=== PATIENT | female | born 1945 | race Caucasian/White ===

== ENCOUNTER 2017-09-07 12:22 | Inpatient (IN) | payer MEDICARE ==
[2017-09-07] MEDS ORDERED: HumaLOG 300 UNITS/3 ML VIAL SC PRN ×2 (13:27)
[2017-09-07] MEDS ORDERED: Dextrose 5% in Water 1,000 ML IV PRN (13:27)
[2017-09-07] MEDS ORDERED: Dextrose 50% Abboject 50 ML SYRINGE SLOW IVP PRN (13:27)
[2017-09-07] MEDS ORDERED: Sodium Chloride 0.9% 50 ML ONE (16:06)
[2017-09-07] MEDS ORDERED: Non-Formulary Item 1 EACH (Metformin Hcl [Metformin Hcl Er] 1,000 MG) PO SCH (17:00)
[2017-09-07] MEDS: metFORMIN XR 500 MG TAB PO SCH (18:22)
[2017-09-07] MEDS: Gabapentin 300 MG CAP PO SCH ×2 (18:23→21:28)
--- NOTE | 2017-09-07 18:50 | HP ---
DATE OF ADMISSION: 09/07/2017 CHIEF COMPLAINT: Significant deconditioning for physical therapy. BRIEF HISTORY: This is a pleasant overweight 72-year-old female, who was admitted to [facility] on 08/25/2017 with knee pain. 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 She was on IV antibiotics for 6 weeks. She has had difficulty getting around at home and presented to the emergency room. She w as noticed to have a right heel decubitus with tendon exposure as well as left heel deep tissue inju ry and was admitted to the hospital for evaluation. She was noticed to have significant peripheral vascular disease and underwent a right fem-pop bypass. She also was noticed to have a renal stone, which required lithotripsy, ureteral stent placement by Urology. She also started growing yeast and was started on Diflucan. She was switched over to oral Keflex after finishing 6 weeks of antibioti cs. Her wound VAC was removed from the site of her right fem-pop bypass. She has continued wound t herapy for her right heel and she has been transferred here for therapy and wound care. She denies any concerns. She denies any fever or chills. She denies any chest pain or shortness of breath. PAST MEDICAL HISTORY: 1. Diabetes mellitus type 2. 2. Hypertension. 3. Dyslipidemia. 4. Obstructive sleep apnea. 5. Morbid obesity. 6. Coronary artery disease. 7. Degenerative joint disease. 8. Recent septic arthritis. 9. Peripheral vascular disease. 10. Bilateral heel decubitus, right heel worse than left. PAST SURGICAL HISTORY: 1. Vulvar debulking for vulvar cancer. 2. Shoulder surgery. 3. Bilateral total knee replacement. 4. Right total knee revision in 06/17/2017. 5. Coronary artery bypass grafting. 6. Pacemaker placement. 7. Appendectomy. 8. Hysterectomy . ALLERGIES: PLAVIX, COCONUT OIL, CODEINE. TORADOL, PENICILLIN, SULFA, TIZANIDINE. FAMILY HISTORY: Noncontributory to current admission. PSYCHOSOCIAL HISTORY: Denies any tobacco, alcohol or IV drug abuse. She states she has not been ve ry independent and has had significant difficulty with her ADLs. MEDICATIONS: She has been transferred here on the following medications: 1. Tye 5/325 mg one tab q.6 hours p.r.n. for pain 4-7 and 2 tabs q. 6 hours h. p.r.n. for pain 8- 10. 2. Ecotrin 81 daily. 3. Tenormin 75 mg daily. 4. Lipitor 20 mg daily. 5. Vitamin D3 1000 international units daily. 6. Lexapro 10 mg daily. 7. Levoxyl 125 mcg daily. 8. Zestril 40 mg daily. 9. Glucophage XR 1000 mg b.i.d. 10. Myrbetriq 50 mg. In the discharge note, I have read that she is supposed to be on Keflex, but I do not see it in the discharge medication list. REVIEW OF SYSTEMS: Cardiovascular System: Denies any chest pain, shortness of breath, palpitations , paroxysmal nocturnal dyspnea, orthopnea, pedal edema. Respiratory System: Denies any chronic cou gh, expectoration or pleuritic type chest pain. Gastrointestinal System: Denies any nausea, vomiti ng, diarrhea, constipation, hematemesis, melena or hematochezia. Genitourinary: Denies any frequen cy, urgency, dysuria or hematuria. Central Nervous System: Generalized weakness. HEENT: No diffi culty with speech, vision, hearing or swallowing. PHYSICAL EXAMINATION: GENERAL: Pleasant 72-year-old overweight female resting comfortably, in no acute distress . She responds appropriately to questions. She is alert, awake, and oriented x3. VITAL SIGNS: She is afebrile, heart rate is 60, respirations 20, oxygen saturation 97%, blood press ure was 185/77. HEENT: Normocephalic, atraumatic. Pupils equal and reactive to light and accommodation. NECK: No JVD, thyromegaly, cervical adenopathy, throat exudates or carotid bruits. CARDIOVASCULAR SYSTEM: S1, S2+. Rate and rhythm regular. RESPIRATORY SYSTEM: Normal vesicular breath sounds heard in all lung lennon with decreased air entr y at the bases. ABDOMEN: Soft, obese, nontender, bowel sounds heard in all quadrants. EXTREMITIES: Without cyanosis or clubbing. Trace edema, right leg. Peripheral pulses are palpable , right bilateral heel with dressing. CENTRAL NERVOUS SYSTEM: Generalized weakness, otherwise nonfocal. LABORATORY VALUES: Pending from today. IMPRESSION: 1. Severe peripheral vascular disease, status post right femoral-popliteal bypass. 2. Diabetes mellitus type 2. 3. Hypertension. 4. Dyslipidemia. 5. Hypothyroidism. 6. Coronary artery disease. 7. Morbid obesity. 8. Obstructive sleep apnea. 9. Multiple renal stones requiring left ureteroscopy, stent placement and lithotripsy and basket ex traction. PLAN: 1. Continue wound care per written instructions from [facility]. 2. Restart Keflex 250 mg t.i.d. 3. 1800 calorie Heart healthy ADA diet. 4. DVT prophylaxis with Lovenox. 5. Decubitus precautions. 6. Stress ulcer prophylaxis. 7. Physical therapy and occupational therapy. 8. Nutritional support with 1800 calorie heart healthy diet. 9. Continue current medications 10. Routine laboratory values. 11. Discussed with patient in detail and all questions answered. 12. Finish Diflucan for ??? UTI for a total of 10 days. Total time spent on this admission 75 minutes.
[2017-09-07] MEDS ORDERED: Simvastatin 40 MG TAB PO SCH (21:00)
[2017-09-07] MEDS ORDERED: INSULIN GLARGINE HUM REC ANLOG 55 UNIT SC SCH (21:00)
[2017-09-07] MEDS: Atorvastatin Calcium 20 MG TAB PO SCH (21:28)
[2017-09-07] MEDS: Famotidine 20 MG TAB PO SCH (21:28)
[2017-09-07] MEDS: Enoxaparin Sodium 40 MG/0.4 ML SYRINGE SC SCH (21:28)
[2017-09-07] MEDS: Cephalexin 250 MG CAP PO SCH (21:28)
[2017-09-07] MEDS: Levemir Flexpen 100 UNITS/ML PEN SC SCH (21:29)
[2017-09-07] MEDS: HYDROcodone/Acetaminophen 10/325 mg Tablet PO PRN (22:38)
[2017-09-08 05:09] LABS: #Basophils 0.1 thou/uL (0.0-0.2); #Eosinphils 0.4 thou/uL (0.0-0.7); #Lymphocytes 2.2 thou/uL (1.20-3.40); #Monocytes 0.8 thou/uL (0.11-0.59); %Basophils 0.6 % (0.0-1.0); %Eosinophils 3.7 % (0.0-10.0); %Lymphocytes 19.1 % (21.0-51.0); %Monocytes 7.1 % (0.0-10.0); %Neutrophils 69.5 % (42.0-75.0); Hemoglobin 10.1 g/dL (12.0-16.0); Mean Corpuscular HGB CONC 30.9 g/dL (32.0-36.0); Mean Corpuscular Hemoglobin 27.8 pg (27.0-31.0); Mean Platelet Volume 7.6 fL (7.4-10.4); Platelet Count 262 thou/uL (130-400); RBC Distribution Width 13.5 % (11.5-14.5); Red Blood Cell (RBC) Count 3.62 mill/uL (4.20-5.40); White Blood Cell (WBC) Count 11.5 thou/uL (4.8-10.8)
[2017-09-08 05:26] LABS: Anion Gap 13 mmol/L (10-20); BUN (Urea Nitrogen) 18 mg/dL (9.8-20.1); Calc. Creatinine Clearance 106 mL/min (70-130); Calcium 9.5 mg/dL (7.8-10.44); Carbon Dioxide 25 mmol/L (23-31); Chloride 105 mmol/L (98-107); Estimated GFR-MDRD 75; Glucose 133 mg/dL (83-110); Potassium 3.8 mmol/L (3.5-5.1); Sodium 139 mmol/L (136-145)
[2017-09-08] MEDS ORDERED: Non-Formulary Item 1 EACH (Insulin Glargine,Hum.Rec.Anlog 35 UNIT) SQ SCH (09:00)
[2017-09-08] MEDS: Levemir Flexpen 100 UNITS/ML PEN SC SCH ×2 (09:00→20:46)
[2017-09-08] MEDS ORDERED: ATENOLOL 75 MG PO SCH (09:00)
[2017-09-08] MEDS: Levothyroxine Sodium 125 MCG TAB PO SCH (09:02)
[2017-09-08] MEDS: Atenolol 25 MG TAB PO SCH (09:02)
[2017-09-08] MEDS: Gabapentin 300 MG CAP PO SCH ×4 (09:02→20:45)
[2017-09-08] MEDS: Cephalexin 250 MG CAP PO SCH ×3 (09:03→20:45)
[2017-09-08] MEDS: Fluconazole 100 MG TAB PO SCH (09:03)
[2017-09-08] MEDS: Escitalopram Oxalate 10 mg Tablet PO SCH (09:04)
[2017-09-08] MEDS: Famotidine 20 MG TAB PO SCH ×2 (09:04→20:45)
[2017-09-08] MEDS: Lisinopril 20 MG TAB PO SCH (09:04)
[2017-09-08] MEDS: metFORMIN XR 500 MG TAB PO SCH ×2 (09:57→15:52)
[2017-09-08] MEDS: Aspirin 81 mg Enteric Coated Tablet PO SCH (09:58)
--- NOTE | 2017-09-08 10:50 | PRG ---
DATE OF SERVICE: 09/08/2017 SUBJECTIVE: The patient feels well, sitting up in the bed eating breakfast. Awaiting therapy. She states that she is ready to do therapy. She is having chronic difficulty with placing weight on he r right knee secondary to antibiotic spacers being placed for septic arthritis, but is now having ne w problem of weakness in her left good leg, limiting her therapy. She has denied any fever or chill s, nausea and vomiting, is having no pain in her heel and is having increased diabetic control since her infection has been improved. She has a previous history of coronary disease, peripheral vascul ar disease, status post coronary bypass graft and carotid endarterectomy. She was denying any chest pain, shortness of breath, localized numbness, weakness in arms or extremity. OBJECTIVE: Blood pressure 118/72, pulse 60, temperature 97, respirations 16, O2 96%, blood pressure 153/60. Lungs are clear. Cardiac examination shows regular rhythm. Abdomen is soft and nontender . Right knee is swollen and unable to extend greater than 160 degrees, but not red or hot. Right h eel is bandaged and being cared for by Wound Care. ASSESSMENT: Diabetes with poor control with subsequent complication of septic arthritis, right knee and heel decubitus on right heel. She has undergone right femoral popliteal bypass with good heali ng and good flow, who is now here for PT and OT. She had a new complication of some weakness in her left leg. She will be continued on therapy well while she is continued on oral Keflex for her nurse coordinator magdy right knee infection with spacers in place. Her diabetes appears to be much better controlled a nd will be continued to monitor on her decreased dose of Levemir and sliding scale. PLAN: 1. Continue PT, OT monitoring for weakness in the left leg and weightbearing on the right heel and right knee. 2. Continue oral Keflex. 3. Continue Diflucan for yeast urinary tract infection. 4. Continue to monitor for signs of angina or congestive heart failure.
[2017-09-08] MEDS: HYDROcodone/Acetaminophen 10/325 mg Tablet PO PRN ×2 (12:57→19:53)
[2017-09-08] MEDS: Atorvastatin Calcium 20 MG TAB PO SCH (20:45)
[2017-09-08] MEDS: Enoxaparin Sodium 40 MG/0.4 ML SYRINGE SC SCH (20:46)
[2017-09-09] MEDS: HYDROcodone/Acetaminophen 10/325 mg Tablet PO PRN ×3 (06:56→20:40)
[2017-09-09] MEDS: Atenolol 25 MG TAB PO SCH (08:24)
[2017-09-09] MEDS: metFORMIN XR 500 MG TAB PO SCH ×2 (08:24→17:28)
[2017-09-09] MEDS: Aspirin 81 mg Enteric Coated Tablet PO SCH (08:24)
[2017-09-09] MEDS: Escitalopram Oxalate 10 mg Tablet PO SCH (08:25)
[2017-09-09] MEDS: Cephalexin 250 MG CAP PO SCH ×3 (08:25→20:35)
[2017-09-09] MEDS: Gabapentin 300 MG CAP PO SCH ×4 (08:26→20:35)
[2017-09-09] MEDS: Fluconazole 100 MG TAB PO SCH (08:26)
[2017-09-09] MEDS: Famotidine 20 MG TAB PO SCH ×2 (08:26→20:35)
[2017-09-09] MEDS: Levemir Flexpen 100 UNITS/ML PEN SC SCH ×2 (08:27→20:38)
[2017-09-09] MEDS: Levothyroxine Sodium 125 MCG TAB PO SCH (08:27)
[2017-09-09] MEDS: Lisinopril 20 MG TAB PO SCH (08:28)
[2017-09-09] MEDS: Atorvastatin Calcium 20 MG TAB PO SCH (20:35)
[2017-09-09] MEDS: Enoxaparin Sodium 40 MG/0.4 ML SYRINGE SC SCH (20:38)
[2017-09-10] MEDS: metFORMIN XR 500 MG TAB PO SCH ×2 (08:28→17:12)
[2017-09-10] MEDS: Atenolol 25 MG TAB PO SCH (08:29)
[2017-09-10] MEDS: Cephalexin 250 MG CAP PO SCH ×3 (08:29→20:46)
[2017-09-10] MEDS: Aspirin 81 mg Enteric Coated Tablet PO SCH (08:29)
[2017-09-10] MEDS: Gabapentin 300 MG CAP PO SCH ×4 (08:30→20:46)
[2017-09-10] MEDS: Fluconazole 100 MG TAB PO SCH (08:30)
[2017-09-10] MEDS: Famotidine 20 MG TAB PO SCH ×2 (08:30→20:47)
[2017-09-10] MEDS: Escitalopram Oxalate 10 mg Tablet PO SCH (08:30)
[2017-09-10] MEDS: Levemir Flexpen 100 UNITS/ML PEN SC SCH ×2 (08:31→20:48)
[2017-09-10] MEDS: Levothyroxine Sodium 125 MCG TAB PO SCH (08:31)
[2017-09-10] MEDS: Lisinopril 20 MG TAB PO SCH (08:31)
--- NOTE | 2017-09-10 10:02 | PRG ---
DATE OF SERVICE: 09/09/[address] Caryl Gilbert SUBJECTIVE: The patient feels well with no foot pain and good strength. No nausea, vomiting, no ch est pain. OBJECTIVE: VITAL SIGNS: Blood pressure is 152/65, temperature 98, pulse 60, respirations 18, O2 sats 96%. LUNGS: Clear. CARDIAC: Examination shows regular rhythm. EXTREMITIES: Right foot is bandaged. ASSESSMENT: 1. Peripheral vascular disease, right foot with heel decubitus of the right heel, healing well with PT and OT. 2. Yeast urinary tract infection. 3. Recent renal stone with lithotripsy and stent placement by Dr. Mccrary. 4. Obstructive sleep apnea. 5. Coronary artery disease, asymptomatic. PLAN: 1. Continue oral Keflex. Continue wound care. 2. Arrange for transport with Dr. Mccrary on Monday or Monday next week for followup. 3. Continue Diflucan for yeast urinary tract infection. 4. Continue Accu-Cheks and titration to control of diabetes.
--- NOTE | 2017-09-10 11:22 | PRG ---
DATE OF SERVICE: 09/10/2017 SUBJECTIVE: Patient feels well, sitting up in the bed, eating breakfast. OBJECTIVE: Shows blood pressure 152/65, pulse 60, respirations 18, O2 sats 96%. Right heel is band aged. Lungs are clear. Cardiac examination shows regular rhythm. Accu-Cheks are stable at 95-116. ASSESSMENT: 1. Resolving right heel decubitus. 2. Stable peripheral vascular disease, status post right femoral popliteal bypass. 3. Type 2 diabetes previously uncontrolled, now controlled. 4. Hypertension, controlled to goal. 5. Multiple renal stones requiring lithotripsy with appointment next week with Dr. Mccrary. PLAN: 1. Continue wound care. 2. Continue Keflex. 3. Arrange for transportation, Dr. Mccrary. 4. Finish Diflucan. 5. Continue PT and OT. 6. Continue Accu-Cheks, controlled diabetes.
[2017-09-10] MEDS: HYDROcodone/Acetaminophen 10/325 mg Tablet PO PRN (17:14)
[2017-09-10] MEDS: Atorvastatin Calcium 20 MG TAB PO SCH (20:47)
[2017-09-10] MEDS: Enoxaparin Sodium 40 MG/0.4 ML SYRINGE SC SCH (20:48)
[2017-09-11] MEDS: Levemir Flexpen 100 UNITS/ML PEN SC SCH ×2 (08:27→21:04)
[2017-09-11] MEDS: Atenolol 25 MG TAB PO SCH (08:28)
[2017-09-11] MEDS: Cephalexin 250 MG CAP PO SCH ×3 (08:28→21:03)
[2017-09-11] MEDS: metFORMIN XR 500 MG TAB PO SCH ×2 (08:28→16:59)
[2017-09-11] MEDS: Lisinopril 20 MG TAB PO SCH (08:30)
[2017-09-11] MEDS: Aspirin 81 mg Enteric Coated Tablet PO SCH (08:30)
[2017-09-11] MEDS: Levothyroxine Sodium 125 MCG TAB PO SCH (08:31)
[2017-09-11] MEDS: Fluconazole 100 MG TAB PO SCH (08:31)
[2017-09-11] MEDS: Famotidine 20 MG TAB PO SCH ×2 (08:31→21:03)
[2017-09-11] MEDS: Gabapentin 300 MG CAP PO SCH ×4 (08:31→21:03)
[2017-09-11] MEDS: Escitalopram Oxalate 10 mg Tablet PO SCH (08:34)
[2017-09-11] MEDS: HYDROcodone/Acetaminophen 10/325 mg Tablet PO PRN ×3 (08:46→21:04)
--- NOTE | 2017-09-11 13:21 | PRG ---
DATE OF SERVICE: 09/11/2017 SUBJECTIVE: Ms. Hoyos is doing well. Denies any complaints, resting comfortably. She is due to se santos Mccrary on Monday. She is supposed to get a CT scan on that same day. She denies any concerns or questions. Discussed with nursing and no concerns. She has had rai in since the , then I have asked nursing to remove the rai. Her blood pressure was high this morning, but denies any chest pain, headache, vision problems. OBJECTIVE: VITAL SIGNS: She is afebrile, heart rate 62, respirations 18, blood pressure 196/80. CARDIOVASCULAR: S1, S2 plus. RESPIRATORY: Normal vesicular breath sounds. ABDOMEN: Soft, nontender, bowel sounds heard in all quadrants. EXTREMITIES: Without cyanosis or clubbing. Peripheral pulses are palpable. CENTRAL NERVOUS SYSTEM: Grossly nonfocal. I examined her right leg and minimal edema. Both the fe m-pop bypass incision as well as her right knee incision looks healthy, soft tissues a little tense, but no warmth or tenderness. IMPRESSION: 1. Right leg peripheral vascular disease status post femoral-popliteal bypass. 2. Nonhealing ulcer, right heel, stage 4. 3. Diabetes mellitus type 2. 4. Hypertension, not well controlled. 5. Obesity. 6. Peripheral neuropathy. 7. Resolving urinary tract infection. 8. Depression. 9. Dyslipidemia. 10. Renal calculi status post stent placement as well as lithotripsy. PLAN: 1. Add amlodipine 10 mg at night. 2. Okay to remove rai. 3. Continue current medications. 4. 1800-calorie heart healthy diet. 5. Wound care. 6. DVT and stress ulcer prophylaxis. 7. Decubitus precautions. 8. Routine laboratory values. 9. Discussed with patient in detail and all questions answered.
[2017-09-11] MEDS ORDERED: Amlodipine 10 MG TAB PO SCH ×2 (13:30→21:00)
[2017-09-11] MEDS: Enoxaparin Sodium 40 MG/0.4 ML SYRINGE SC SCH (21:03)
[2017-09-11] MEDS: Atorvastatin Calcium 20 MG TAB PO SCH (21:03)
[2017-09-12 05:12] LABS: #Basophils 0.1 thou/uL (0.0-0.2); #Eosinphils 0.6 thou/uL (0.0-0.7); #Lymphocytes 2.3 thou/uL (1.20-3.40); #Monocytes 0.9 thou/uL (0.11-0.59); #Neutrophils 5.7 thou/uL (1.40-6.50); %Basophils 0.6 % (0.0-1.0); %Eosinophils 6.1 % (0.0-10.0); %Lymphocytes 24.4 % (21.0-51.0); %Neutrophils 59.9 % (42.0-75.0); Hemoglobin 9.4 g/dL (12.0-16.0); Mean Corpuscular HGB CONC 30.6 g/dL (32.0-36.0); Mean Corpuscular Hemoglobin 27.7 pg (27.0-31.0); Mean Corpuscular Volume 90.5 fl (81.0-99.0); Mean Platelet Volume 8.1 fL (7.4-10.4); Platelet Count 205 thou/uL (130-400); RBC Distribution Width 13.7 % (11.5-14.5); White Blood Cell (WBC) Count 9.4 thou/uL (4.8-10.8)
[2017-09-12 05:30] LABS: Anion Gap 13 mmol/L (10-20); BUN (Urea Nitrogen) 21 mg/dL (9.8-20.1); Calc. Creatinine Clearance 114 mL/min (70-130); Calcium 9.1 mg/dL (7.8-10.44); Carbon Dioxide 26 mmol/L (23-31); Chloride 104 mmol/L (98-107); Estimated GFR-MDRD 81; Glucose 93 mg/dL (83-110); Potassium 4.1 mmol/L (3.5-5.1); Sodium 139 mmol/L (136-145)
[2017-09-12] MEDS: HYDROcodone/Acetaminophen 10/325 mg Tablet PO PRN ×2 (08:18→20:35)
[2017-09-12] MEDS: Lisinopril 20 MG TAB PO SCH (08:20)
[2017-09-12] MEDS: Gabapentin 300 MG CAP PO SCH ×4 (08:20→20:34)
[2017-09-12] MEDS: metFORMIN XR 500 MG TAB PO SCH ×2 (08:20→17:04)
[2017-09-12] MEDS: Cephalexin 250 MG CAP PO SCH ×3 (08:20→20:34)
[2017-09-12] MEDS: Atenolol 25 MG TAB PO SCH (08:21)
[2017-09-12] MEDS: Amlodipine 10 MG TAB PO SCH (08:22)
[2017-09-12] MEDS: Escitalopram Oxalate 10 mg Tablet PO SCH (08:22)
[2017-09-12] MEDS: Levothyroxine Sodium 125 MCG TAB PO SCH (08:22)
[2017-09-12] MEDS: Famotidine 20 MG TAB PO SCH ×2 (08:22→20:34)
[2017-09-12] MEDS: Aspirin 81 mg Enteric Coated Tablet PO SCH (08:22)
[2017-09-12] MEDS: Levemir Flexpen 100 UNITS/ML PEN SC SCH ×2 (08:23→20:35)
[2017-09-12] MEDS ORDERED: metFORMIN XR 500 MG TAB ONE (13:35)
[2017-09-12] MEDS: HYDROcodone/Acetaminophen 10/325 mg Tablet ONE ×2 (14:00→17:15)
[2017-09-12] MEDS ORDERED: Gabapentin 300 MG CAP ONE (14:01)
[2017-09-12] MEDS ORDERED: Cephalexin 250 MG CAP ONE ×2 (15:38→15:43)
[2017-09-12] MEDS: Atorvastatin Calcium 20 MG TAB PO SCH (20:34)
[2017-09-12] MEDS: Enoxaparin Sodium 40 MG/0.4 ML SYRINGE SC SCH (20:34)
[2017-09-13] MEDS: Levothyroxine Sodium 125 MCG TAB PO SCH (05:46)
[2017-09-13] MEDS: HYDROcodone/Acetaminophen 10/325 mg Tablet PO PRN ×3 (06:09→20:19)
[2017-09-13] MEDS: Amlodipine 10 MG TAB PO SCH (08:41)
[2017-09-13] MEDS: metFORMIN XR 500 MG TAB PO SCH ×2 (08:41→17:06)
[2017-09-13] MEDS: Aspirin 81 mg Enteric Coated Tablet PO SCH (08:42)
[2017-09-13] MEDS: Cephalexin 250 MG CAP PO SCH ×3 (08:43→20:18)
[2017-09-13] MEDS: Atenolol 25 MG TAB PO SCH (08:43)
[2017-09-13] MEDS: Famotidine 20 MG TAB PO SCH ×2 (08:44→20:18)
[2017-09-13] MEDS: Gabapentin 300 MG CAP PO SCH ×4 (08:44→20:19)
[2017-09-13] MEDS: Levemir Flexpen 100 UNITS/ML PEN SC SCH ×2 (08:44→20:19)
[2017-09-13] MEDS: Escitalopram Oxalate 10 mg Tablet PO SCH (08:44)
[2017-09-13] MEDS: Lisinopril 20 MG TAB PO SCH (08:45)
--- NOTE | 2017-09-13 09:38 | CT ---
CT OF ABDOMEN AND PELVIS WITHOUT CONTRAST: Date: 09-13-17 Comparison: CT angiogram of abdomen and pelvis, 08-27-17. History: Renal stone disease, recent stent placement within left ureter. Technique: Serial axial CT imaging is obtained at 5 mm intervals from lung bases through pubic symph ysis without contrast. Coronal reformatted imaging obtained. FINDINGS: The lack of IV and oral contrast limits assessment of the viscera, bowel vascular structures, and fo r lymphadenopathy. Midline sternotomy wires are present. Multi-lead transvenous pacing device presen t, incompletely imaged. There is a subcentimeter right lower lobe granuloma. Imaged lung bases unremarkable otherwise. No free intraperitoneal air noted. There is a left double J ureteral stent present. Small volume gas is noted in the urinary bladder suggesting gas associated with prior instrumentation. Two calcified gallstones are present within the gallbladder lumen measuring up to 7 mm. Hepatic and splenic granulomata are noted. Pancreas and bilateral adrenal glands are unremarkable. A punctate calcification is noted in the region of the renal hilum on the right measuring in the 2-3 mm range. THIs could represent an arterial calcification. A nonobstructing renal stone is a less li matt possibility. There is no evidence for obstructive uropathy on the right. The left double J ureteral stent is in proper position, proximal curl within renal pelvis and distal curl within urinary bladder. The prior exam demonstrated renal calculi within the posterior aspect of the lower pole left kidney as well as within the renal pelvis and the proximal left ureter. On this exam, those stones are no l onger visualized. There is no evidence for a stone within the left kidney or along the course of the left double J ureteral stent. No discrete calcification is seen within the urinary bladder either. No evidence for bowel obstruction. IVC filter noted. Extensive atherosclerotic calcification of abdo yolanda aorta and its branches noted. There is a new incompletely imaged vascular/arterial stent in th e right inguinal region. There are bilateral L4 and L5 pedicle screws with vertically oriented interlocking rods. There is pr ominent lower lumbar spine degenerative change with multilevel facet hypertrophic change as well as multilevel disc space narrowing and osteophyte formation. IMPRESSION: 1. Left double J ureteral stent in place. No renal calculi noted. No evidence for obstructive uropat hy. 2. Additional incidental findings as detailed above. POS: [facility]
--- NOTE | 2017-09-13 13:22 | PRG ---
DATE OF SERVICE: 09/13/2017 The [employer] system was down yesterday due to Internet access up in [place] and I had no access to her lab work or her vital signs, so now it is being dictated today. SUBJECTIVE: Ms. Hoyos is doing well. Denies any complaints, resting comfortably. She is up in her wheelchair and getting ready to go back in bed. She has an appointment with Dr. Mccrary tomorr ow as well as a CT scan. She denies any complaints or questions. Discussed with therapy and they a re noticing that her wound is improving, but swab showed E. coli and yeast. I advised them that she has just finished her fluconazole and she is on Keflex. I think that there is more colonization. I do not see any signs of any infection, but I told them next time they are going to do wound care, I will check on her wound. They do not notice any maceration, no erythema. OBJECTIVE: VITAL SIGNS: She is afebrile. Heart rate is 64, respirations are 18 and blood pressure is 188/76. CARDIOVASCULAR SYSTEM: S1, S2 plus. RESPIRATORY SYSTEM: Normal vesicular breath sounds. ABDOMEN: Soft and nontender. Bowel sounds heard in all quadrants. EXTREMITIES: Without cyanosis or clubbing. Right heel with dressing. IMPRESSION: 1. Right heel ulcer stage 4. 2. Peripheral vascular disease, status post right femoral-popliteal bypass. 3. Diabetes mellitus type 2. 4. Obesity. 5. Hypertension. Just started on amlodipine at night. 6. Peripheral neuropathy. 7. Dyslipidemia. 8. Renal calculi, status post stent placement and lithotripsy. PLAN: 1. Continue current medications. 2. Monitor blood pressure for the next couple of days before making any further changes. 3. Wound care. 4. Continue oral antibiotics. 5. An 1800-calorie heart healthy diet. 6. DVT and stress ulcer prophylaxis. 7. Decubitus precautions. 8. Routine laboratory values.
--- NOTE | 2017-09-13 13:31 | PRG ---
DATE OF SERVICE: 09/13/2017 SUBJECTIVE: Ms. Hoyos is doing well. She is seen prior to her going to her appointment with Urolog y. She denies any concerns or questions. Blood pressure is better. OBJECTIVE: VITAL SIGNS: Heart rate is 66, respiratory rate is 18, and blood pressure is 140/58. CARDIOVASCULAR SYSTEM: S1, S2 plus. RESPIRATORY SYSTEM: Normal vesicular breath sounds. ABDOMEN: Soft, nontender, bowel sounds heard in all quadrants, obese. EXTREMITIES: Without cyanosis or clubbing, accurate dressing. LABORATORY VALUES: White count 9.4, H\T\H is 9.4 and 30.7. Sodium 139, potassium 4.1, BUN and crea tinine 21 and 1.71. Blood sugars are 91, 163, 126, [address] abdomen and pelvis was done thi s morning for Dr. Mccrary. IMPRESSION: 1. Peripheral vascular disease, status post right femoral-popliteal bypass. 2. Right heel ulcer stage 4. 3. Diabetes mellitus type 2. 4. Hypertension. 5. Dyslipidemia. 6. Obesity. 7. Obstructive sleep apnea. 8. History of renal calculi. PLAN: 1. Continue wound care. 2. An 1800 calorie heart healthy diet. 3. Physical therapy. 4. Nutritional support. 5. DVT and stress ulcer prophylaxis. 6. Decubitus precautions. 7. Routine laboratory values. 8. Await Dr. Mccrary's instructions. 9. Discussed with patient in detail and all questions answered.
[2017-09-13] MEDS: Atorvastatin Calcium 20 MG TAB PO SCH (20:18)
[2017-09-13] MEDS: Enoxaparin Sodium 40 MG/0.4 ML SYRINGE SC SCH (20:18)
[2017-09-14] MEDS: Levothyroxine Sodium 125 MCG TAB PO SCH (06:24)
[2017-09-14] MEDS: metFORMIN XR 500 MG TAB PO SCH ×2 (08:33→16:51)
[2017-09-14] MEDS: Amlodipine 10 MG TAB PO SCH (08:33)
[2017-09-14] MEDS: Famotidine 20 MG TAB PO SCH ×2 (08:34→21:19)
[2017-09-14] MEDS: Escitalopram Oxalate 10 mg Tablet PO SCH (08:34)
[2017-09-14] MEDS: Atenolol 25 MG TAB PO SCH (08:34)
[2017-09-14] MEDS: Cephalexin 250 MG CAP PO SCH (08:34)
[2017-09-14] MEDS: Aspirin 81 mg Enteric Coated Tablet PO SCH (08:34)
[2017-09-14] MEDS: Gabapentin 300 MG CAP PO SCH ×4 (08:35→21:05)
[2017-09-14] MEDS: Levemir Flexpen 100 UNITS/ML PEN SC SCH ×2 (08:35→21:03)
[2017-09-14] MEDS: Lisinopril 20 MG TAB PO SCH (08:35)
[2017-09-14] MEDS: HYDROcodone/Acetaminophen 10/325 mg Tablet PO PRN ×3 (08:37→21:07)
[2017-09-14 10:05] LABS: #Basophils 0.1 thou/uL (0.0-0.2); #Eosinphils 0.5 thou/uL (0.0-0.7); #Lymphocytes 2.1 thou/uL (1.20-3.40); #Neutrophils 8.2 thou/uL (1.40-6.50); %Basophils 0.7 % (0.0-1.0); %Eosinophils 4.6 % (0.0-10.0); %Neutrophils 68.7 % (42.0-75.0); Hemoglobin 11.3 g/dL (12.0-16.0); Mean Corpuscular HGB CONC 31.2 g/dL (32.0-36.0); Mean Corpuscular Hemoglobin 27.9 pg (27.0-31.0); Mean Corpuscular Volume 89.5 fl (81.0-99.0); Mean Platelet Volume 8.4 fL (7.4-10.4); Platelet Count 250 thou/uL (130-400); Red Blood Cell (RBC) Count 4.04 mill/uL (4.20-5.40); White Blood Cell (WBC) Count 11.9 thou/uL (4.8-10.8)
[2017-09-14] MEDS ORDERED: Gabapentin 400 MG CAP PO SCH (10:15)
[2017-09-14] MEDS ORDERED: Gabapentin 100 MG CAP PO SCH (10:15)
--- NOTE | 2017-09-14 13:23 | PRG ---
DATE OF SERVICE: 09/14/2017 SUBJECTIVE: Ms. Hoyos is doing well. Denies any complaints. She saw Dr. Mccrary yesterday and had her stent removed. She has been noticing more erythema in her right leg. She denies any pain, there is some warmth and some induration. Discussed with the physical therapist doing wound care a nd they said that her right heel wound is actually improving. No fever or chills. The inferior inc ision for her right fem-pop bypass shows some dehiscence in the superior aspect, it is just having s ome serosanguineous drainage. No erythema surrounding it. No fever or chills. Since she has a his tory of group B strep and was recently treated for right lower extremity cellulitis and she has hist ory of right septic arthritis, I am going to get her back on Rocephin IV 2 grams daily. I have left a message for Dr. Heaton, who has seen her in the past and see if we need to add vancomycin. We awais l also order blood cultures and cultures of the serosanguineous drainage from the incision for the f em-pop bypass. Discussed with the patient in detail and all questions answered. OBJECTIVE: VITAL SIGNS: The patient is afebrile, heart rate is 63, respirations 20, and blood pressure is 140/ 58. CARDIOVASCULAR SYSTEM: S1, S2 plus. RESPIRATORY SYSTEM: Normal vesicular breath sounds. ABDOMEN: Soft, obese, nontender, bowel sounds heard in all quadrants. EXTREMITIES: Right heel with dressing. Right lower extremity does show some warmth erythema. No t enderness. LABORATORY VALUES: Her white count is 11.9, H\T\H is 11.3 and 36.2. Her white count was 9.4 on , 68% neutrophils, no bands. Blood sugars are 113, 128, 134, 143 and 116. IMPRESSION: 1. Recurrent right lower extremity cellulitis. 2. Recent right femoral-popliteal bypass. 3. Hypertension, well controlled. 4. Diabetes mellitus type 2. 5. Hypertension. 6. Dyslipidemia. 7. Recent removal of ureteric stent. PLAN: 1. IV Rocephin 2 grams daily. 2. Stop Keflex. 3. Await Dr. Heaton' opinion. 4. Check blood cultures and culture of the drainage from the inferior fem-pop bypass site. 5. Blood cultures, CRP, sed rate. 6. Continue current medications. 7. Wound care. 8. She apparently has an appointment with Dr. Bryant already scheduled for Monday. 9. Discussed with the patient in detail. No family at the bedside.
[2017-09-14] MEDS: cefTRIAXone\\ROCEPHIN 2 GM in Sodium Chloride 0.9% 100 ML IVPB SCH (14:26)
[2017-09-14] MEDS: Enoxaparin Sodium 40 MG/0.4 ML SYRINGE SC SCH (21:04)
[2017-09-14] MEDS: Atorvastatin Calcium 20 MG TAB PO SCH (21:06)
[2017-09-14] MEDS: Vancomycin HCl 1 GM in Sodium Chloride 0.9% 250 ML 250 ML IVPB SCH (21:08)
[2017-09-15 05:40] LABS: Anion Gap 15 mmol/L (10-20); BUN (Urea Nitrogen) 21 mg/dL (9.8-20.1); CRP (Inflammatory) 5.83 mg/dL (= or < 0.5); Calc. Creatinine Clearance 111 mL/min (70-130); Carbon Dioxide 26 mmol/L (23-31); Chloride 103 mmol/L (98-107); Estimated GFR-MDRD 78; Glucose 82 mg/dL (83-110); Potassium 3.9 mmol/L (3.5-5.1); Sodium 140 mmol/L (136-145)
[2017-09-15] MEDS: Levothyroxine Sodium 125 MCG TAB PO SCH (06:21)
--- NOTE | 2017-09-15 08:49 | PRG ---
DATE OF SERVICE: 09/15/2017 SUBJECTIVE: Ms. Hoyos is doing the same. Denies any complaints except for some pain in her right l eg. She states that it is a little better. She denies any fever or chills. She denies any chest p ain or shortness of breath. OBJECTIVE: VITAL SIGNS: She is afebrile, heart rate is 70, respiration rate 16, oxygen saturation 93%, blood p ressure 167/98. CARDIOVASCULAR: S1, S2 plus. RESPIRATORY: Normal vesicular breath sounds. ABDOMEN: Soft, nontender, bowel sounds heard in all quadrants, obese. EXTREMITIES: Without cyanosis or clubbing. The right leg to me looks the same to possibly just a t ad worse from the erythema standpoint, though warm is pretty much the same. Still no drainage excep t some serosanguineous drainage from her inferior fem-pop incision. No neurovascular compromise. N ow the erythema seems to involve the knee as well. LABORATORY VALUES: Sodium 140, potassium 3.9, BUN and creatinine is 21 and 0.73. CRP is 5.83. Her sed rate is 70. IMPRESSION: 1. Right leg cellulitis with possible recurrence of septic arthritis clinically. 2. Recent right fem-pop bypass. 3. Diabetes mellitus type 2. 4. Hypertension. 5. Dyslipidemia. 6. Hypothyroidism. 7. Deconditioning. 8. Obstructive sleep apnea. 9. Stage IV decubitus right heel. PLAN: 1. She has been started on Rocephin and vancomycin yesterday. I had discussed with Dr. Heaton and yaneth graham recommended adding the vancomycin and possibly even Flagyl if the infection involves more than jus t her knee. With her erythema, possibly the same or slightly worse, but her clinical symptoms being better, I am still going to go ahead and add the Flagyl today in addition to the vancomycin and Brendan ephin. She is tolerating the antibiotics so far. We will also add Florastor probiotics to help red uce the risk of stomach irritation. 2. Recheck laboratory values in the morning. We will add daily CBC. 3. Continue local care. 4. She has outpatient followup with Dr. Bryant tomorrow. Will ask him to schedule an appointment wi Dr. Schwab as well. 5. Continue heart healthy diet. 6. DVT and stress ulcer prophylaxis. 7. Decubitus precautions. 8. Routine laboratory values. 9. The plan discussed with the patient in detail and all questions answered. 10. No family at the bedside.
[2017-09-15] MEDS: Gabapentin 300 MG CAP PO SCH ×4 (09:06→21:02)
[2017-09-15] MEDS: Lisinopril 20 MG TAB PO SCH (09:06)
[2017-09-15] MEDS: Famotidine 20 MG TAB PO SCH ×2 (09:07→21:04)
[2017-09-15] MEDS: Atenolol 25 MG TAB PO SCH (09:07)
[2017-09-15] MEDS: Amlodipine 10 MG TAB PO SCH (09:07)
[2017-09-15] MEDS: metFORMIN XR 500 MG TAB PO SCH ×2 (09:07→17:13)
[2017-09-15] MEDS: Aspirin 81 mg Enteric Coated Tablet PO SCH (09:07)
[2017-09-15] MEDS: Vancomycin HCl 1 GM in Sodium Chloride 0.9% 250 ML 250 ML IVPB SCH ×2 (09:08→21:04)
[2017-09-15] MEDS: Escitalopram Oxalate 10 mg Tablet PO SCH (09:08)
[2017-09-15] MEDS: Levemir Flexpen 100 UNITS/ML PEN SC SCH ×2 (09:21→21:05)
[2017-09-15] MEDS: HYDROcodone/Acetaminophen 10/325 mg Tablet PO PRN (11:09)
[2017-09-15] MEDS: Saccharomyces boulardii 250 MG CAP PO SCH ×2 (11:09→21:03)
[2017-09-15] MEDS: cefTRIAXone\\ROCEPHIN 2 GM in Sodium Chloride 0.9% 100 ML IVPB SCH (14:03)
[2017-09-15] MEDS: metroNIDAZOLE 500 MG in Premix Bag 1 BAG IVPB SCH ×2 (15:44→21:08)
[2017-09-15] MEDS: Atorvastatin Calcium 20 MG TAB PO SCH (21:04)
[2017-09-15] MEDS: Enoxaparin Sodium 40 MG/0.4 ML SYRINGE SC SCH (21:04)
[2017-09-16] MEDS: metroNIDAZOLE 500 MG in Premix Bag 1 BAG IVPB SCH ×3 (05:58→20:30)
[2017-09-16] MEDS: Levothyroxine Sodium 125 MCG TAB PO SCH (05:58)
[2017-09-16 07:09] LABS: #Basophils 0.1 thou/uL (0.0-0.2); #Eosinphils 0.3 thou/uL (0.0-0.7); #Lymphocytes 0.9 thou/uL (1.20-3.40); #Monocytes 0.6 thou/uL (0.11-0.59); #Neutrophils 4.1 thou/uL (1.40-6.50); %Basophils 1.1 % (0.0-1.0); %Eosinophils 5.6 % (0.0-10.0); %Lymphocytes 14.6 % (21.0-51.0); %Neutrophils 68.8 % (42.0-75.0); Hemoglobin 9.1 g/dL (12.0-16.0); Mean Corpuscular HGB CONC 30.1 g/dL (32.0-36.0); Mean Corpuscular Hemoglobin 27.8 pg (27.0-31.0); Mean Corpuscular Volume 92.3 fl (81.0-99.0); Mean Platelet Volume 9.1 fL (7.4-10.4); Platelet Count 160 thou/uL (130-400); RBC Distribution Width 13.8 % (11.5-14.5); Red Blood Cell (RBC) Count 3.27 mill/uL (4.20-5.40)
[2017-09-16 07:17] LABS: Vancomycin, Trough 17.3 ug/mL
[2017-09-16 07:19] LABS: Anion Gap 15 mmol/L (10-20); BUN (Urea Nitrogen) 15 mg/dL (9.8-20.1); Calc. Creatinine Clearance 112 mL/min (70-130); Calcium 9.1 mg/dL (7.8-10.44); Carbon Dioxide 24 mmol/L (23-31); Chloride 106 mmol/L (98-107); Estimated GFR-MDRD 79; Glucose 81 mg/dL (83-110); Potassium 4.2 mmol/L (3.5-5.1); Sodium 141 mmol/L (136-145)
[2017-09-16] MEDS: Saccharomyces boulardii 250 MG CAP PO SCH ×2 (08:32→20:16)
[2017-09-16] MEDS: Gabapentin 300 MG CAP PO SCH ×4 (08:32→20:16)
[2017-09-16] MEDS: Atenolol 25 MG TAB PO SCH (08:33)
[2017-09-16] MEDS: Lisinopril 20 MG TAB PO SCH (08:33)
[2017-09-16] MEDS: Amlodipine 10 MG TAB PO SCH (08:33)
[2017-09-16] MEDS: Escitalopram Oxalate 10 mg Tablet PO SCH (08:33)
[2017-09-16] MEDS: metFORMIN XR 500 MG TAB PO SCH ×2 (08:34→17:30)
[2017-09-16] MEDS: Aspirin 81 mg Enteric Coated Tablet PO SCH (08:34)
[2017-09-16] MEDS: Famotidine 20 MG TAB PO SCH ×2 (08:34→20:16)
[2017-09-16] MEDS: Levemir Flexpen 100 UNITS/ML PEN SC SCH ×2 (08:41→20:21)
[2017-09-16] MEDS: HYDROcodone/Acetaminophen 10/325 mg Tablet PO PRN ×2 (08:42→20:15)
[2017-09-16] MEDS: Vancomycin HCl 1 GM in Sodium Chloride 0.9% 250 ML 250 ML IVPB SCH ×2 (08:51→20:22)
[2017-09-16 13:14] LABS: Vancomycin, Peak 31.8 ug/mL (20.0-40.0)
[2017-09-16] MEDS: cefTRIAXone\\ROCEPHIN 2 GM in Sodium Chloride 0.9% 100 ML IVPB SCH (14:21)
--- NOTE | 2017-09-16 17:37 | PRG ---
DATE OF SERVICE: 09/16/2017 SUBJECTIVE: Ms. Hoyos is doing well, resting comfortably. She states that the pain in her right le g has completely resolved. No fever or chills. OBJECTIVE: VITAL SIGNS: She is afebrile, heart rate 73, respirations 17, oxygen saturation 96%, blood pressure is 147/66. CARDIOVASCULAR: S1, S2 plus. RESPIRATORY: Normal vesicular breath sounds. ABDOMEN: Soft, obese, nontender, bowel sounds heard in all quadrants. EXTREMITIES: Without cyanosis or clubbing. Right leg erythema is much improved and is almost resol carlos. The warmth has also pretty much resolved. IMPRESSION: 1. Cellulitis, right lower extremity. 2. Possible recurrence of septic arthritis, right lower extremity, but the erythema in both of thos e areas was much improved. 3. Diabetes mellitus, type 2. 4. Hypertension. 5. Obstructive sleep apnea. 6. Morbid obesity. 7. Nephrolithiasis. 8. Hypothyroidism. 9. Stage IV decubitus right heel. PLAN: 1. Continue current antibiotic regimen of vancomycin, Rocephin, and Flagyl. Her vancomycin peak is 31.8 and her vancomycin trough is 17.3. 2. No change in her vancomycin dosage and frequency. 3. Continue 1800 calorie heart healthy diet. 4. Monitor blood sugars. 5. She has a followup appointment with Dr. Schwab and Dr. Bryant on Monday. 6. Deep venous thrombosis and stress ulcer prophylaxis. 7. Decubitus precautions. 8. Weekly CBC, CRP, and sed rate. 9. Her white count is back to normal. Her blood pressure is much improved. Depending upon the haylie luation by her specialist, we will figure out how long she needs to be on these IV antibiotics.
[2017-09-16] MEDS: Atorvastatin Calcium 20 MG TAB PO SCH (20:20)
[2017-09-16] MEDS: Enoxaparin Sodium 40 MG/0.4 ML SYRINGE SC SCH (20:21)
[2017-09-17] MEDS: metroNIDAZOLE 500 MG in Premix Bag 1 BAG IVPB SCH ×3 (05:27→21:09)
[2017-09-17] MEDS: Levothyroxine Sodium 125 MCG TAB PO SCH (05:27)
[2017-09-17 05:51] LABS: #Eosinphils 0.3 thou/uL (0.0-0.7); #Monocytes 0.5 thou/uL (0.11-0.59); #Neutrophils 4.4 thou/uL (1.40-6.50); %Basophils 0.8 % (0.0-1.0); %Eosinophils 4.9 % (0.0-10.0); %Lymphocytes 16.3 % (21.0-51.0); %Monocytes 8.4 % (0.0-10.0); %Neutrophils 69.6 % (42.0-75.0); Hemoglobin 9.3 g/dL (12.0-16.0); Mean Corpuscular HGB CONC 30.4 g/dL (32.0-36.0); Mean Corpuscular Hemoglobin 28.1 pg (27.0-31.0); Mean Corpuscular Volume 92.5 fl (81.0-99.0); Mean Platelet Volume 8.7 fL (7.4-10.4); Platelet Count 154 thou/uL (130-400); RBC Distribution Width 13.5 % (11.5-14.5); Red Blood Cell (RBC) Count 3.29 mill/uL (4.20-5.40); White Blood Cell (WBC) Count 6.3 thou/uL (4.8-10.8)
[2017-09-17 05:59] LABS: Anion Gap 14 mmol/L (10-20); BUN (Urea Nitrogen) 12 mg/dL (9.8-20.1); Calc. Creatinine Clearance 122 mL/min (70-130); Calcium 9.1 mg/dL (7.8-10.44); Carbon Dioxide 25 mmol/L (23-31); Chloride 107 mmol/L (98-107); Estimated GFR-MDRD 88; Glucose 61 mg/dL (83-110); Potassium 3.9 mmol/L (3.5-5.1); Sodium 142 mmol/L (136-145)
[2017-09-17] MEDS: Vancomycin HCl 1 GM in Sodium Chloride 0.9% 250 ML 250 ML IVPB SCH ×2 (08:20→20:39)
[2017-09-17] MEDS: Levemir Flexpen 100 UNITS/ML PEN SC SCH ×2 (09:21→21:11)
[2017-09-17] MEDS: Famotidine 20 MG TAB PO SCH ×2 (09:22→21:12)
[2017-09-17] MEDS: Amlodipine 10 MG TAB PO SCH (09:22)
[2017-09-17] MEDS: Gabapentin 300 MG CAP PO SCH ×4 (09:22→21:12)
[2017-09-17] MEDS: metFORMIN XR 500 MG TAB PO SCH ×2 (09:27→17:06)
[2017-09-17] MEDS: Saccharomyces boulardii 250 MG CAP PO SCH ×2 (09:27→21:12)
[2017-09-17] MEDS: Lisinopril 20 MG TAB PO SCH (09:27)
[2017-09-17] MEDS: Atenolol 25 MG TAB PO SCH (09:27)
[2017-09-17] MEDS: Aspirin 81 mg Enteric Coated Tablet PO SCH (09:27)
[2017-09-17] MEDS: Escitalopram Oxalate 10 mg Tablet PO SCH (09:28)
[2017-09-17] MEDS: HYDROcodone/Acetaminophen 10/325 mg Tablet PO PRN ×2 (09:38→18:08)
--- NOTE | 2017-09-17 11:09 | PRG ---
DATE OF SERVICE: 09/17/2017 SUBJECTIVE: Ms. Hoyos is doing well. Denies any complaints, tolerating her antibiotics. OBJECTIVE: VITAL SIGNS: She is afebrile, heart rate 69, respirations 18, oxygen saturation 96%, and blood pres sure is 139/54. CARDIOVASCULAR SYSTEM: S1, S2 plus. RESPIRATORY SYSTEM: Normal vesicular breath sounds. ABDOMEN: Soft, obese, nontender, bowel sounds heard in all quadrants. EXTREMITIES: Without cyanosis or clubbing. Still with 1+ edema to the right lower extremity, but e rythema has pretty much resolved. Minimal warmth, no pain. LABORATORY VALUES: White count of 6.3, H\T\H is 9.3 and 30.4. Chemistry shows a sodium of 142, pot assium 3.9, BUN and creatinine 12 and 0.66. Blood sugars are 97, 113, 126, and 66. IMPRESSION: 1. Resolving cellulitis, right lower extremity. 2. Recent septic arthritis requiring long-term IV antibiotics. 3. Recent right fem-pop bypass. 4. Diabetes mellitus type 2. 5. Hypertension. 6. Dyslipidemia. 7. Morbid obesity. 8. Obstructive sleep apnea. PLAN: 1. Continue wound care. 2. Nutritional support. 3. DVT and stress ulcer prophylaxis. 4. Decubitus precautions. 5. She has an appointment with both Dr. Schwab and Dr. Bryant tomorrow. 6. We will discuss with Dr. Heaton and wait for opinions from Dr. Bryant and Dr. Schwab as to the dur ation of antibiotics, it looks like it most likely is cellulitis and she should be okay with just 7- 10 days' duration of antibiotics. She is supposed to be on suppressive therapy with Keflex for at l east 3 months. Discussed with the patient in detail and all questions answered. Continue decubitus care.
[2017-09-17] MEDS: cefTRIAXone\\ROCEPHIN 2 GM in Sodium Chloride 0.9% 100 ML IVPB SCH (13:30)
[2017-09-17] MEDS: Enoxaparin Sodium 40 MG/0.4 ML SYRINGE SC SCH (21:10)
[2017-09-17] MEDS: Atorvastatin Calcium 20 MG TAB PO SCH (21:12)
[2017-09-18] MEDS: Levothyroxine Sodium 125 MCG TAB PO SCH (05:40)
[2017-09-18] MEDS: metroNIDAZOLE 500 MG in Premix Bag 1 BAG IVPB SCH ×3 (05:41→21:08)
[2017-09-18 05:57] LABS: #Basophils 0.1 thou/uL (0.0-0.2); #Eosinphils 0.4 thou/uL (0.0-0.7); #Lymphocytes 1.2 thou/uL (1.20-3.40); #Monocytes 0.6 thou/uL (0.11-0.59); #Neutrophils 3.4 thou/uL (1.40-6.50); %Basophils 1.2 % (0.0-1.0); %Eosinophils 7.2 % (0.0-10.0); %Lymphocytes 21.5 % (21.0-51.0); %Monocytes 10.9 % (0.0-10.0); %Neutrophils 59.1 % (42.0-75.0); Hemoglobin 9.2 g/dL (12.0-16.0); Mean Corpuscular HGB CONC 30.6 g/dL (32.0-36.0); Mean Corpuscular Hemoglobin 27.9 pg (27.0-31.0); Mean Corpuscular Volume 91.4 fl (81.0-99.0); Mean Platelet Volume 8.8 fL (7.4-10.4); Platelet Count 155 thou/uL (130-400); RBC Distribution Width 13.7 % (11.5-14.5); White Blood Cell (WBC) Count 5.7 thou/uL (4.8-10.8)
[2017-09-18 06:04] LABS: Anion Gap 14 mmol/L (10-20); BUN (Urea Nitrogen) 12 mg/dL (9.8-20.1); Calc. Creatinine Clearance 126 mL/min (70-130); Calcium 9.1 mg/dL (7.8-10.44); Carbon Dioxide 25 mmol/L (23-31); Chloride 106 mmol/L (98-107); Estimated GFR-MDRD Greater than 90; Glucose 73 mg/dL (83-110); Potassium 3.8 mmol/L (3.5-5.1); Sodium 141 mmol/L (136-145)
[2017-09-18] MEDS: Amlodipine 10 MG TAB PO SCH (08:14)
[2017-09-18] MEDS: metFORMIN XR 500 MG TAB PO SCH ×2 (08:14→17:03)
[2017-09-18] MEDS: Vancomycin HCl 1 GM in Sodium Chloride 0.9% 250 ML 250 ML IVPB SCH ×2 (08:14→20:42)
[2017-09-18] MEDS: Aspirin 81 mg Enteric Coated Tablet PO SCH (08:15)
[2017-09-18] MEDS: Atenolol 25 MG TAB PO SCH (08:15)
[2017-09-18] MEDS: Famotidine 20 MG TAB PO SCH ×2 (08:16→21:09)
[2017-09-18] MEDS: Gabapentin 300 MG CAP PO SCH ×4 (08:16→21:09)
[2017-09-18] MEDS: Escitalopram Oxalate 10 mg Tablet PO SCH (08:16)
[2017-09-18] MEDS: Levemir Flexpen 100 UNITS/ML PEN SC SCH ×2 (08:17→21:07)
[2017-09-18] MEDS: Lisinopril 20 MG TAB PO SCH (08:17)
[2017-09-18] MEDS: Saccharomyces boulardii 250 MG CAP PO SCH ×2 (08:18→21:09)
[2017-09-18] MEDS: HYDROcodone/Acetaminophen 10/325 mg Tablet PO PRN ×2 (08:28→17:03)
[2017-09-18] MEDS: cefTRIAXone\\ROCEPHIN 2 GM in Sodium Chloride 0.9% 100 ML IVPB SCH ×2 (13:13→17:02)
[2017-09-18] MEDS: Enoxaparin Sodium 40 MG/0.4 ML SYRINGE SC SCH (21:07)
[2017-09-18] MEDS: Atorvastatin Calcium 20 MG TAB PO SCH (21:09)
[2017-09-19] MEDS: metroNIDAZOLE 500 MG in Premix Bag 1 BAG IVPB SCH ×3 (05:21→21:06)
[2017-09-19] MEDS: Levothyroxine Sodium 125 MCG TAB PO SCH (05:21)
[2017-09-19 05:35] LABS: #Eosinphils 0.4 thou/uL (0.0-0.7); #Lymphocytes 1.3 thou/uL (1.20-3.40); #Monocytes 0.6 thou/uL (0.11-0.59); #Neutrophils 3.8 thou/uL (1.40-6.50); %Basophils 0.7 % (0.0-1.0); %Eosinophils 6.8 % (0.0-10.0); %Neutrophils 61.5 % (42.0-75.0); Mean Corpuscular HGB CONC 30.1 g/dL (32.0-36.0); Mean Corpuscular Hemoglobin 27.5 pg (27.0-31.0); Mean Corpuscular Volume 91.5 fl (81.0-99.0); Mean Platelet Volume 8.5 fL (7.4-10.4); Platelet Count 164 thou/uL (130-400); Red Blood Cell (RBC) Count 3.26 mill/uL (4.20-5.40); White Blood Cell (WBC) Count 6.2 thou/uL (4.8-10.8)
[2017-09-19 05:46] LABS: Anion Gap 15 mmol/L (10-20); BUN (Urea Nitrogen) 14 mg/dL (9.8-20.1); Calc. Creatinine Clearance 124 mL/min (70-130); Calcium 8.9 mg/dL (7.8-10.44); Carbon Dioxide 23 mmol/L (23-31); Chloride 109 mmol/L (98-107); Estimated GFR-MDRD 89; Glucose 71 mg/dL (83-110); Potassium 3.5 mmol/L (3.5-5.1); Sodium 143 mmol/L (136-145)
[2017-09-19] MEDS: metFORMIN XR 500 MG TAB PO SCH ×2 (08:12→17:32)
[2017-09-19] MEDS: Vancomycin HCl 1 GM in Sodium Chloride 0.9% 250 ML 250 ML IVPB SCH ×2 (08:13→20:25)
[2017-09-19] MEDS: Amlodipine 10 MG TAB PO SCH (08:13)
[2017-09-19] MEDS: Aspirin 81 mg Enteric Coated Tablet PO SCH (08:14)
[2017-09-19] MEDS: Atenolol 25 MG TAB PO SCH (08:14)
[2017-09-19] MEDS: Escitalopram Oxalate 10 mg Tablet PO SCH (08:15)
[2017-09-19] MEDS: Famotidine 20 MG TAB PO SCH ×2 (08:15→20:28)
[2017-09-19] MEDS: Gabapentin 300 MG CAP PO SCH ×4 (08:15→20:27)
[2017-09-19] MEDS: Lisinopril 20 MG TAB PO SCH (08:16)
[2017-09-19] MEDS: Levemir Flexpen 100 UNITS/ML PEN SC SCH ×2 (08:16→20:27)
[2017-09-19] MEDS: Saccharomyces boulardii 250 MG CAP PO SCH ×2 (08:19→20:28)
[2017-09-19] MEDS: HYDROcodone/Acetaminophen 10/325 mg Tablet PO PRN ×3 (08:19→18:18)
[2017-09-19] MEDS: cefTRIAXone\\ROCEPHIN 2 GM in Sodium Chloride 0.9% 100 ML IVPB SCH (13:19)
--- NOTE | 2017-09-19 13:34 | PRG ---
DATE OF SERVICE: 09/19/2017 SUBJECTIVE: Ms. Hoyos is doing well. Denies any complaints, resting comfortably. She visited Dr. Schwab and Dr. Bryant yesterday. Dr. Schwab apparently advised her that if she does not improve with these antibiotics then he probably is just going to remove the antibiotic spacers and really not wo rk on the knee anymore. Dr. Bryant apparently just wants to follow up with her in a month. I do not have any of their office notes. It is just from the discussion and with her having some erythema t gisella. I feel that she would benefit from 6 weeks of antibiotics empirically since she did have some knee erythema and warmth prior to starting these antibiotics. We will schedule her for a PICC line placement and she is in agreement as well. OBJECTIVE: VITAL SIGNS: She is afebrile, heart rate 68, respirations 20, oxygen saturation 95%, blood pressure was elevated today at 179/77. CARDIOVASCULAR: S1, S2 plus. RESPIRATORY: Normal vesicular breath sounds. ABDOMEN: Soft and nontender, bowel sounds heard in all quadrants, obese. EXTREMITIES: Without cyanosis or clubbing. Trace erythema to the right lower extremity, 1-2+ edema . LABORATORY VALUES: White count of 6.2, H\T\H is 9 and 29.9. Sodium 143, potassium 3.5, BUN and cre atinine is 14 and 0.65. IMPRESSION: 1. Right leg resolving cellulitis. 2. Possible recurrence of septic arthritis. 3. Peripheral vascular disease, status post right femoral-popliteal bypass. 4. Diabetes mellitus type 2. 5. Hypertension. 6. Dyslipidemia. 7. Obstructive sleep apnea. 8. Morbid obesity. PLAN: 1. Continue current medications. 2. Wound care. 3. DVT and stress ulcer prophylaxis. 4. Decubitus precautions. 5. Pharmacy to adjust vancomycin dosing. 6. Weekly CBC, CRP, sed rate. 7. Wound care to right heel. 8. Nutritional support. 9. Physical therapy. 10. Schedule PICC line placement. 11. Discussed with patient in detail and all questions answered.
[2017-09-19 20:08] LABS: Vancomycin, Trough 17.8 ug/mL
[2017-09-19] MEDS: Enoxaparin Sodium 40 MG/0.4 ML SYRINGE SC SCH (20:26)
[2017-09-19] MEDS: Atorvastatin Calcium 20 MG TAB PO SCH (20:28)
[2017-09-20] MEDS: Levothyroxine Sodium 125 MCG TAB PO SCH (05:37)
[2017-09-20] MEDS: metroNIDAZOLE 500 MG in Premix Bag 1 BAG IVPB SCH ×3 (05:37→21:53)
[2017-09-20] MEDS: HYDROcodone/Acetaminophen 10/325 mg Tablet PO PRN ×3 (05:44→21:58)
[2017-09-20] MEDS: Saccharomyces boulardii 250 MG CAP PO SCH ×2 (11:46→20:34)
[2017-09-20] MEDS: Escitalopram Oxalate 10 mg Tablet PO SCH (11:46)
[2017-09-20] MEDS: metFORMIN XR 500 MG TAB PO SCH ×2 (11:46→17:16)
[2017-09-20] MEDS: Famotidine 20 MG TAB PO SCH ×2 (11:46→20:34)
[2017-09-20] MEDS: Atenolol 25 MG TAB PO SCH (11:47)
[2017-09-20] MEDS: Amlodipine 10 MG TAB PO SCH (11:47)
[2017-09-20] MEDS: Lisinopril 20 MG TAB PO SCH (11:48)
[2017-09-20] MEDS: Aspirin 81 mg Enteric Coated Tablet PO SCH (11:48)
[2017-09-20] MEDS: Gabapentin 300 MG CAP PO SCH ×4 (11:58→20:34)
[2017-09-20] MEDS: Vancomycin HCl 1 GM in Sodium Chloride 0.9% 250 ML 250 ML IVPB SCH ×2 (11:58→20:26)
[2017-09-20] MEDS: Levemir Flexpen 100 UNITS/ML PEN SC SCH ×2 (11:59→20:38)
[2017-09-20] MEDS: cefTRIAXone\\ROCEPHIN 2 GM in Sodium Chloride 0.9% 100 ML IVPB SCH (13:52)
--- NOTE | 2017-09-20 15:56 | PRG ---
DATE OF SERVICE: 09/20/2017 SUBJECTIVE: Ms. Hoyos is doing well. Denies any complaints, resting comfortably. She had her PICC line placed. OBJECTIVE: VITAL SIGNS: She is afebrile, heart rate 63, respirations 18, oxygen saturation 93%, blood pressure is 168/70. CARDIOVASCULAR SYSTEM: S1, S2 plus. RESPIRATORY SYSTEM: Normal vesicular breath sounds. ABDOMEN: Soft, nontender, bowel sounds heard in all quadrants. EXTREMITIES: Without cyanosis or clubbing. Right leg erythema has resolved, still has mild edema. IMPRESSION: 1. Resolving right lower extremity cellulitis and possible recurrence of septic arthritis. 2. Peripheral vascular disease, status post right femoropopliteal bypass. 3. Diabetes mellitus, type 2. 4. Hypertension, not well controlled. 5. Dyslipidemia. 6. Obstructive sleep apnea. 7. Obesity. PLAN: 1. Continue IV vancomycin and Rocephin. 2. Switch her Flagyl to p.o. after checking her next set of CRP and sed rate, which is due on the . 3. DVT and stress ulcer prophylaxis. 4. Decubitus precautions. 5. Add hydralazine 25 mg b.i.d. 6. An 1800 calorie heart healthy ADA diet. 7. Accu-Cheks with sliding scale coverage. 8. Wound care. 9. Nutritional support and physical therapy.
[2017-09-20] MEDS: Atorvastatin Calcium 10 MG TAB PO SCH (20:33)
[2017-09-20] MEDS: hydrALAZINE 25 MG TAB PO SCH (20:34)
[2017-09-20] MEDS: Enoxaparin Sodium 40 MG/0.4 ML SYRINGE SC SCH (20:34)
[2017-09-21] MEDS: Levothyroxine Sodium 125 MCG TAB PO SCH (05:38)
[2017-09-21] MEDS: metroNIDAZOLE 500 MG in Premix Bag 1 BAG IVPB SCH ×3 (05:43→22:20)
[2017-09-21 08:02] LABS: Vancomycin, Trough 19.5 ug/mL
[2017-09-21] MEDS: HYDROcodone/Acetaminophen 10/325 mg Tablet PO PRN ×3 (08:41→22:27)
[2017-09-21] MEDS: Escitalopram Oxalate 10 mg Tablet PO SCH (08:42)
[2017-09-21] MEDS: Atenolol 25 MG TAB PO SCH (08:42)
[2017-09-21] MEDS: Gabapentin 300 MG CAP PO SCH ×4 (08:44→21:04)
[2017-09-21] MEDS: Aspirin 81 mg Enteric Coated Tablet PO SCH (08:44)
[2017-09-21] MEDS: Famotidine 20 MG TAB PO SCH ×2 (08:44→21:04)
[2017-09-21] MEDS: Lisinopril 20 MG TAB PO SCH (08:44)
[2017-09-21] MEDS: Amlodipine 10 MG TAB PO SCH (08:45)
[2017-09-21] MEDS: metFORMIN XR 500 MG TAB PO SCH ×2 (08:45→16:41)
[2017-09-21] MEDS: Saccharomyces boulardii 250 MG CAP PO SCH ×2 (08:45→21:04)
[2017-09-21] MEDS: Vancomycin HCl 1 GM in Sodium Chloride 0.9% 250 ML 250 ML IVPB SCH ×2 (08:46→20:45)
[2017-09-21] MEDS: hydrALAZINE 25 MG TAB PO SCH ×2 (08:46→21:04)
[2017-09-21] MEDS: Levemir Flexpen 100 UNITS/ML PEN SC SCH ×2 (08:48→21:01)
[2017-09-21] MEDS: cefTRIAXone\\ROCEPHIN 2 GM in Sodium Chloride 0.9% 100 ML IVPB SCH (14:06)
--- NOTE | 2017-09-21 19:16 | PRG ---
DATE OF SERVICE: 09/21/2017 SUBJECTIVE: Ms. Hoyos is doing well. Denies any complaints, resting comfortably, tolerating her me dications. OBJECTIVE: VITAL SIGNS: She is afebrile, heart rate is 60, respirations are 16, blood pressure is 147/63. CARDIOVASCULAR: S1 and S2 plus. RESPIRATORY: Normal vesicular breath sounds. ABDOMEN: Soft, nontender, bowel sounds heard in all quadrants, obese. EXTREMITIES: Without cyanosis or clubbing. Improving edema right leg, resolved erythema. IMPRESSION: 1. Resolving right lower extremity cellulitis and possible recurrence of septic arthritis. 2. Right heel stage IV decubitus with tendon exposure. 3. Peripheral vascular disease, status post right femoral-popliteal bypass. 4. Diabetes mellitus type 2. 5. Hypertension. 6. Obstructive sleep apnea. 7. Anemia of chronic disease. PLAN: 1. Continue IV antibiotics. 2. Nutritional support. 3. 1800-calorie heart-healthy ADA diet. 4. Accu-Cheks with sliding scale coverage. 5. Deep venous thrombosis and stress ulcer prophylaxis. 6. Wound care. 7. Weekly CBC, CRP, sed rate. 8. Physical therapy. 9. Discussed with the patient in detail and all questions answered.
[2017-09-21] MEDS: Enoxaparin Sodium 40 MG/0.4 ML SYRINGE SC SCH (20:53)
[2017-09-21] MEDS: Atorvastatin Calcium 10 MG TAB PO SCH (21:04)
[2017-09-22] MEDS ORDERED: Sodium Chloride 0.9% 10 ML ONE (05:56)
[2017-09-22] MEDS: metroNIDAZOLE 500 MG in Premix Bag 1 BAG IVPB SCH ×3 (06:04→22:00)
[2017-09-22] MEDS: Levothyroxine Sodium 125 MCG TAB PO SCH (06:06)
[2017-09-22] MEDS: HYDROcodone/Acetaminophen 10/325 mg Tablet PO PRN ×2 (08:47→17:02)
[2017-09-22] MEDS: Levemir Flexpen 100 UNITS/ML PEN SC SCH ×2 (08:48→20:49)
[2017-09-22] MEDS: Vancomycin HCl 1 GM in Sodium Chloride 0.9% 250 ML 250 ML IVPB SCH ×2 (08:49→20:38)
[2017-09-22] MEDS: Lisinopril 20 MG TAB PO SCH (08:51)
[2017-09-22] MEDS: Atenolol 25 MG TAB PO SCH (08:52)
[2017-09-22] MEDS: Saccharomyces boulardii 250 MG CAP PO SCH ×2 (08:52→20:43)
[2017-09-22] MEDS: Gabapentin 300 MG CAP PO SCH ×4 (08:52→20:43)
[2017-09-22] MEDS: Famotidine 20 MG TAB PO SCH ×2 (08:53→20:44)
[2017-09-22] MEDS: hydrALAZINE 25 MG TAB PO SCH ×2 (08:53→20:44)
[2017-09-22] MEDS: Amlodipine 10 MG TAB PO SCH (08:53)
[2017-09-22] MEDS: metFORMIN XR 500 MG TAB PO SCH ×2 (08:53→16:58)
[2017-09-22] MEDS: Escitalopram Oxalate 10 mg Tablet PO SCH (08:54)
[2017-09-22] MEDS: Aspirin 81 mg Enteric Coated Tablet PO SCH (08:54)
--- NOTE | 2017-09-22 09:02 | PRG ---
DATE OF SERVICE: 09/22/2017 SUBJECTIVE: Ms. Hoyos is doing well. Denies any complaints, resting comfortably. She states that she really did work with therapy yesterday and noticed significant pain in her right quadriceps, nee ding ice packs. I advised her to continue to work with therapy so that she can get stronger so by t he time we finish her antibiotics she should be ready to go home. OBJECTIVE: VITAL SIGNS: She is afebrile, heart rate is 65, respirations 20, oxygen saturation 94%, blood press ure 163/70. LABORATORY VALUES: She did have a low blood sugar this morning at 54. She was asymptomatic, it was 63 yesterday. The plan is to cut her evening dose from 55 to 40 units. CARDIOVASCULAR: S1, S2 plus. RESPIRATORY: Normal vesicular breath sounds. ABDOMEN: Soft, nontender, obese. Bowel sounds heard in all quadrants. EXTREMITIES: Without cyanosis or clubbing. Much improved edema in her right leg, has some minimal erythema, no warmth or tenderness. The knee incision looks good, fem-pop incision with dressing. S he states she is having some serous drainage. IMPRESSION: 1. Recurrent right leg cellulitis and possible septic arthritis. PLAN: 1. The plan is for 6 weeks of IV antibiotics. She is to have her repeat CRP and sed rate tomorrow and if that is improving, then we will keep her on IV Rocephin and vancomycin, but switch her to p.o . Flagyl. 2. Continue decubitus care for her right heel. She still has the tendon exposed and I advised her that it is not sure how successful we will be in preserving the tendon and her function, but I advis ed her to continue to work with therapy and do the stretching as instructed. 3. Diabetes mellitus type 2 with episodes of hypoglycemia in the morning. We will decrease her shadi david basal insulin. 4. Hypertension, fluctuating control. We will continue to monitor and adjust medications as needed . 5. Dyslipidemia. 6. Obstructive sleep apnea. PLAN: 1. Continue current medications. 2. Nutritional support. 3. Routine laboratory values. 4. Addressed all patient's concerns. 5. No family at the bedside.
[2017-09-22] MEDS: cefTRIAXone\\ROCEPHIN 2 GM in Sodium Chloride 0.9% 100 ML IVPB SCH (14:35)
[2017-09-22] MEDS: Atorvastatin Calcium 10 MG TAB PO SCH (20:43)
[2017-09-22] MEDS: Enoxaparin Sodium 40 MG/0.4 ML SYRINGE SC SCH (20:44)
[2017-09-23] MEDS: HYDROcodone/Acetaminophen 10/325 mg Tablet PO PRN ×3 (06:01→20:41)
[2017-09-23] MEDS: Levothyroxine Sodium 125 MCG TAB PO SCH (06:01)
[2017-09-23] MEDS: metroNIDAZOLE 500 MG in Premix Bag 1 BAG IVPB SCH ×3 (06:03→21:51)
[2017-09-23 07:10] LABS: #Eosinphils 0.3 thou/uL (0.0-0.7); #Lymphocytes 0.9 thou/uL (1.20-3.40); #Monocytes 0.5 thou/uL (0.11-0.59); #Neutrophils 3.7 thou/uL (1.40-6.50); %Basophils 0.6 % (0.0-1.0); %Eosinophils 5.5 % (0.0-10.0); %Lymphocytes 16.7 % (21.0-51.0); %Monocytes 9.7 % (0.0-10.0); %Neutrophils 67.6 % (42.0-75.0); Hemoglobin 9.5 g/dL (12.0-16.0); Mean Corpuscular HGB CONC 31.3 g/dL (32.0-36.0); Mean Corpuscular Hemoglobin 27.8 pg (27.0-31.0); Mean Corpuscular Volume 88.9 fl (81.0-99.0); Mean Platelet Volume 9.2 fL (7.4-10.4); Platelet Count 165 thou/uL (130-400); RBC Distribution Width 14.6 % (11.5-14.5); Red Blood Cell (RBC) Count 3.41 mill/uL (4.20-5.40); White Blood Cell (WBC) Count 5.5 thou/uL (4.8-10.8)
[2017-09-23 07:24] LABS: Vancomycin, Trough 17.4 ug/mL
[2017-09-23 07:30] LABS: ALT (SGPT) 9 U/L (8-55); AST (SGOT) 11 U/L (5-34); Albumin 3.2 g/dL (3.4-4.8); Alkaline Phosphatase 60 U/L (40-150); Anion Gap 14 mmol/L (10-20); BUN (Urea Nitrogen) 11 mg/dL (9.8-20.1); Bilirubin, Total 0.3 mg/dL (0.2-1.2); CRP (Inflammatory) 1.57 mg/dL (= or < 0.5); Calc. Creatinine Clearance 135 mL/min (70-130); Calcium 8.9 mg/dL (7.8-10.44); Carbon Dioxide 24 mmol/L (23-31); Chloride 107 mmol/L (98-107); Estimated GFR-MDRD Greater than 90; Globulin 2.8 g/dL (2.4-3.5); Glucose 103 mg/dL (83-110); Potassium 3.6 mmol/L (3.5-5.1); Sodium 141 mmol/L (136-145)
[2017-09-23] MEDS: metFORMIN XR 500 MG TAB PO SCH ×2 (08:33→17:15)
[2017-09-23] MEDS: Vancomycin HCl 1 GM in Sodium Chloride 0.9% 250 ML 250 ML IVPB SCH ×2 (08:34→20:22)
[2017-09-23] MEDS: Amlodipine 10 MG TAB PO SCH (08:34)
[2017-09-23] MEDS: Atenolol 25 MG TAB PO SCH (08:35)
[2017-09-23] MEDS: Aspirin 81 mg Enteric Coated Tablet PO SCH (08:35)
[2017-09-23] MEDS: Escitalopram Oxalate 10 mg Tablet PO SCH (08:36)
[2017-09-23] MEDS: Levemir Flexpen 100 UNITS/ML PEN SC SCH ×2 (08:36→20:35)
[2017-09-23] MEDS: hydrALAZINE 25 MG TAB PO SCH ×4 (08:36→20:29)
[2017-09-23] MEDS: Gabapentin 300 MG CAP PO SCH ×4 (08:36→20:28)
[2017-09-23] MEDS: Famotidine 20 MG TAB PO SCH ×2 (08:36→20:29)
[2017-09-23] MEDS: Lisinopril 20 MG TAB PO SCH (08:37)
[2017-09-23] MEDS: Saccharomyces boulardii 250 MG CAP PO SCH ×2 (08:37→20:29)
--- NOTE | 2017-09-23 11:45 | PRG ---
DATE OF SERVICE: 09/23/2017 SUBJECTIVE: Ms. Hoyos is doing well. Denies any complaints, resting comfortably, tolerating her me dications. OBJECTIVE: VITAL SIGNS: She is afebrile, heart rate 65, respiration is 18, oxygen saturation 95%, and blood pr essure is 163/70. CARDIOVASCULAR SYSTEM: S1 and S2 plus. RESPIRATORY SYSTEM: Normal vesicular breath sounds. ABDOMEN: Soft, obese, nontender, bowel sounds heard in all quadrants. EXTREMITIES: Without cyanosis or clubbing. Trace edema, right leg. Erythema and warmth has much i mproved. Pain has pretty much resolved. IMPRESSION: 1. Right leg cellulitis with possible recurrence of septic arthritis in the right knee. 2. Peripheral vascular disease, status post right femoral-popliteal bypass. 3. Diabetes mellitus type 2. 4. Hypertension. 5. Dyslipidemia. 6. Obstructive sleep apnea. PLAN: 1. Discussed with Dr. Heaton yesterday, he recommended 6 weeks of antibiotic therapy with IV Rocephi n combined with either vancomycin and Flagyl or oral rifampin and Flagyl followed by 3 months of Kef jose alfredo and rifampin oral. He recommended weekly CBC, CRP, and sed rate, which is being done. 2. Increase hydralazine to 50 mg t.i.d. 3. A 1800-calorie heart healthy ADA diet. 4. Continue Accu-Cheks with sliding scale coverage. 5. DVT prophylaxis. 6. Decubitus precautions. 7. Right heel decubitus care. 8. Physical therapy. 9. Routine laboratory values. 10. Nocturnal CPAP. 11. Discussed with patient in detail and all questions answered.
[2017-09-23] MEDS: cefTRIAXone\\ROCEPHIN 2 GM in Sodium Chloride 0.9% 100 ML IVPB SCH (15:01)
[2017-09-23] MEDS: Atorvastatin Calcium 10 MG TAB PO SCH (20:28)
[2017-09-23] MEDS: Enoxaparin Sodium 40 MG/0.4 ML SYRINGE SC SCH (20:30)
[2017-09-24] MEDS: Levothyroxine Sodium 125 MCG TAB PO SCH (06:02)
[2017-09-24] MEDS: metroNIDAZOLE 500 MG in Premix Bag 1 BAG IVPB SCH ×3 (06:03→21:55)
[2017-09-24] MEDS: metFORMIN XR 500 MG TAB PO SCH ×2 (08:44→17:02)
[2017-09-24] MEDS: Vancomycin HCl 1 GM in Sodium Chloride 0.9% 250 ML 250 ML IVPB SCH ×2 (08:44→20:30)
[2017-09-24] MEDS: Aspirin 81 mg Enteric Coated Tablet PO SCH (08:45)
[2017-09-24] MEDS: Amlodipine 10 MG TAB PO SCH (08:45)
[2017-09-24] MEDS: Atenolol 25 MG TAB PO SCH (08:45)
[2017-09-24] MEDS: Escitalopram Oxalate 10 mg Tablet PO SCH (08:46)
[2017-09-24] MEDS: hydrALAZINE 25 MG TAB PO SCH ×3 (08:46→20:38)
[2017-09-24] MEDS: Famotidine 20 MG TAB PO SCH ×2 (08:46→20:38)
[2017-09-24] MEDS: Gabapentin 300 MG CAP PO SCH ×4 (08:46→20:38)
[2017-09-24] MEDS: Levemir Flexpen 100 UNITS/ML PEN SC SCH ×2 (08:47→21:06)
[2017-09-24] MEDS: Lisinopril 20 MG TAB PO SCH (08:48)
[2017-09-24] MEDS: Saccharomyces boulardii 250 MG CAP PO SCH ×2 (08:48→20:38)
[2017-09-24] MEDS: HYDROcodone/Acetaminophen 10/325 mg Tablet PO PRN ×2 (08:55→17:02)
[2017-09-24] MEDS: cefTRIAXone\\ROCEPHIN 2 GM in Sodium Chloride 0.9% 100 ML IVPB SCH (13:08)
--- NOTE | 2017-09-24 16:00 | PRG ---
DATE OF SERVICE: 09/24/2017 SUBJECTIVE: Ms. Hoyos is doing well. Denies any complaints, resting comfortably and tolerating her therapy. OBJECTIVE: VITAL SIGNS: She is afebrile. Heart rate is 63, respirations 18, oxygen saturation is 95% and bloo d pressure 163/70. CARDIOVASCULAR SYSTEM: S1 and S2 plus. RESPIRATORY SYSTEM: Normal vesicular breath sounds. ABDOMEN: Soft, obese and nontender. Bowel sounds heard in all quadrants. EXTREMITIES: Without cyanosis or clubbing. Trace edema, right leg, much improved erythema. Right heel decubitus with dressing. IMPRESSION: 1. Stage IV decubitus right heel. 2. Recurrent cellulitis and possible septic arthritis, right leg. 3. Peripheral vascular disease, status post right femoral-popliteal bypass. 4. Diabetes mellitus type 2. 5. Hypertension. 6. Dyslipidemia. 7. Obstructive sleep apnea. PLAN: 1. Continue current medications. 2. Change vancomycin and rifampin per Dr. Heaton' recommendation. 3. Continue Rocephin and Flagyl. 4. An 1800-calorie heart healthy diet. 5. Wound care. 6. Nutritional support. 7. DVT and stress ulcer prophylaxis. 8. Weekly CBC, CRP and sed rate. 9. Discussed with the patient in detail and all questions answered.
[2017-09-24] MEDS: Atorvastatin Calcium 10 MG TAB PO SCH (20:38)
[2017-09-24] MEDS: Enoxaparin Sodium 40 MG/0.4 ML SYRINGE SC SCH (20:38)
[2017-09-25] MEDS: Levothyroxine Sodium 125 MCG TAB PO SCH (06:03)
[2017-09-25] MEDS: metroNIDAZOLE 500 MG in Premix Bag 1 BAG IVPB SCH ×3 (06:05→20:54)
[2017-09-25] MEDS: Saccharomyces boulardii 250 MG CAP PO SCH ×2 (08:20→20:53)
[2017-09-25] MEDS: Atenolol 25 MG TAB PO SCH (08:20)
[2017-09-25] MEDS: metFORMIN XR 500 MG TAB PO SCH ×2 (08:20→17:05)
[2017-09-25] MEDS: Lisinopril 20 MG TAB PO SCH (08:21)
[2017-09-25] MEDS: hydrALAZINE 25 MG TAB PO SCH ×3 (08:21→20:53)
[2017-09-25] MEDS: Escitalopram Oxalate 10 mg Tablet PO SCH (08:22)
[2017-09-25] MEDS: Levemir Flexpen 100 UNITS/ML PEN SC SCH ×2 (08:22→20:53)
[2017-09-25] MEDS: Aspirin 81 mg Enteric Coated Tablet PO SCH (08:22)
[2017-09-25] MEDS: Amlodipine 10 MG TAB PO SCH ×2 (08:22→20:51)
[2017-09-25] MEDS: Famotidine 20 MG TAB PO SCH ×2 (08:22→20:52)
[2017-09-25] MEDS: Vancomycin HCl 1 GM in Sodium Chloride 0.9% 250 ML 250 ML IVPB SCH (08:34)
[2017-09-25] MEDS: HYDROcodone/Acetaminophen 10/325 mg Tablet PO PRN ×2 (08:40→22:00)
[2017-09-25] MEDS: Gabapentin 300 MG CAP PO SCH ×4 (09:37→20:52)
--- NOTE | 2017-09-25 13:53 | PRG ---
DATE OF SERVICE: 09/25/2017 SUBJECTIVE: Ms. Hoyos is doing well. Denies any complaints, resting comfortably, tolerating her me dications. The plan is to stop her vancomycin today and start her on rifampin 300 mg b.i.d. We will continue to monitor her laboratory values and adjust medications as needed. She is agreeable. Thi s is due to my discussion with Dr. Heaton, who felt that Rocephin plus rifampin and Flagyl is probabl y a better option. OBJECTIVE: VITAL SIGNS: She is afebrile, heart rate is 66, respirations 16, oxygen saturation 94%, blood press ure 173/76. CARDIOVASCULAR: S1, S2 plus. RESPIRATORY: Normal vesicular breath sounds. ABDOMEN: Soft, nontender, bowel sounds heard in all quadrants. EXTREMITIES: Without cyanosis or clubbing. LABORATORY VALUES: Blood sugars are 128, 128, 183, 106 and 107. IMPRESSION: 1. Diabetes mellitus type 2. 2. Right lower extremity cellulitis and possible recurrence of septic arthritis. 3. Peripheral vascular disease, status post right femoral-popliteal bypass. 4. Obstructive sleep apnea. 5. Hypertension. 6. Obesity. PLAN: 1. Change vancomycin to or rifampin. 2. Continue Weekly CBC, CRP, sed rate. 3. Decrease nighttime Levemir. 4. DVT and stress ulcer prophylaxis. 5. 1800 calorie heart healthy diet. 6. Continue physical therapy. 7. Nutritional support. 8. Wound care for her right heel stage IV decubitus. Discussed with patient in detail and all questions answered.
[2017-09-25] MEDS: cefTRIAXone\\ROCEPHIN 2 GM in Sodium Chloride 0.9% 100 ML IVPB SCH (14:04)
[2017-09-25] MEDS: Atorvastatin Calcium 10 MG TAB PO SCH (20:51)
[2017-09-25] MEDS: Enoxaparin Sodium 40 MG/0.4 ML SYRINGE SC SCH (20:52)
[2017-09-25] MEDS: Rifampin 300 MG CAP PO SCH (20:54)
[2017-09-26] MEDS: metroNIDAZOLE 500 MG in Premix Bag 1 BAG IVPB SCH ×3 (05:50→21:08)
[2017-09-26] MEDS: Levothyroxine Sodium 125 MCG TAB PO SCH (05:51)
[2017-09-26] MEDS: Escitalopram Oxalate 10 mg Tablet PO SCH (09:09)
[2017-09-26] MEDS: Lisinopril 20 MG TAB PO SCH (09:09)
[2017-09-26] MEDS: Atenolol 25 MG TAB PO SCH (09:10)
[2017-09-26] MEDS: Famotidine 20 MG TAB PO SCH ×2 (09:11→21:06)
[2017-09-26] MEDS: Gabapentin 300 MG CAP PO SCH ×4 (09:11→21:06)
[2017-09-26] MEDS: hydrALAZINE 25 MG TAB PO SCH ×3 (09:11→21:07)
[2017-09-26] MEDS: metFORMIN XR 500 MG TAB PO SCH ×2 (09:11→17:07)
[2017-09-26] MEDS: Aspirin 81 mg Enteric Coated Tablet PO SCH (09:12)
[2017-09-26] MEDS: HYDROcodone/Acetaminophen 10/325 mg Tablet PO PRN ×2 (09:12→21:08)
[2017-09-26] MEDS: Levemir Flexpen 100 UNITS/ML PEN SC SCH ×2 (09:13→21:07)
[2017-09-26] MEDS: Saccharomyces boulardii 250 MG CAP PO SCH ×2 (09:16→21:07)
[2017-09-26] MEDS: Rifampin 300 MG CAP PO SCH ×2 (09:50→21:08)
[2017-09-26] MEDS: cefTRIAXone\\ROCEPHIN 2 GM in Sodium Chloride 0.9% 100 ML IVPB SCH (14:29)
--- NOTE | 2017-09-26 18:46 | PRG ---
DATE OF SERVICE: 09/26/2017 SUBJECTIVE: Ms. Hoyos is doing well. She did have an episode of nausea and vomiting this morning. She thinks that it is after she took her rifampin, but she did she take it yesterday without any is sues. She took it have 10:00 and she states that she threw up even food that she ate last night. OBJECTIVE: VITAL SIGNS: She is afebrile, heart rate is 68, respirations 16, oxygen saturation 95%, blood press ure 166/67. CARDIOVASCULAR: S1 and S2 plus. RESPIRATORY: Normal vesicular breath sounds. ABDOMEN: Soft, nontender, bowel sounds heard in all quadrants. Abdominal exam is benign. EXTREMITIES: Without cyanosis, clubbing. Erythema completely resolved in the right lower extremity . IMPRESSION: 1. Nausea and vomiting, possibly could be related to rifampin, but she took it yesterday without an y issues. 2. Improving right lower extremity cellulitis. 3. Possible recurrence of septic arthritis, much improved. 4. Diabetes mellitus type 2. 5. Hypertension. 6. Dyslipidemia. 7. Obstructive sleep apnea. PLAN: 1. Continue current medications. 2. Trial of rifampin again this evening and if she continues to have any recurrent nausea then will switch her back to her vancomycin. 3. 1800 calorie heart healthy diet. 4. Monitor blood pressure and change her amlodipine to nighttime and lisinopril in the morning. 5. Routine laboratory values. 6. Wound care for her right heel decubitus. 7. No family at the bedside. 8. I discussed with the patient and the nursing in detail and all questions answered.
[2017-09-26] MEDS: Amlodipine 10 MG TAB PO SCH (21:05)
[2017-09-26] MEDS: Enoxaparin Sodium 40 MG/0.4 ML SYRINGE SC SCH (21:06)
[2017-09-26] MEDS: Atorvastatin Calcium 10 MG TAB PO SCH (21:06)
[2017-09-27] MEDS: metroNIDAZOLE 500 MG in Premix Bag 1 BAG IVPB SCH ×3 (05:11→20:51)
[2017-09-27] MEDS: Levothyroxine Sodium 125 MCG TAB PO SCH (05:11)
[2017-09-27] MEDS: metFORMIN XR 500 MG TAB PO SCH ×2 (07:55→17:28)
[2017-09-27] MEDS: Aspirin 81 mg Enteric Coated Tablet PO SCH (07:56)
[2017-09-27] MEDS: Atenolol 25 MG TAB PO SCH (07:56)
[2017-09-27] MEDS: Famotidine 20 MG TAB PO SCH ×2 (07:57→20:50)
[2017-09-27] MEDS: Gabapentin 300 MG CAP PO SCH ×4 (07:57→20:50)
[2017-09-27] MEDS: Escitalopram Oxalate 10 mg Tablet PO SCH (07:57)
[2017-09-27] MEDS: hydrALAZINE 25 MG TAB PO SCH ×3 (07:57→20:50)
[2017-09-27] MEDS: Levemir Flexpen 100 UNITS/ML PEN SC SCH ×3 (07:59→21:06)
[2017-09-27] MEDS: Lisinopril 20 MG TAB PO SCH (08:00)
[2017-09-27] MEDS: Saccharomyces boulardii 250 MG CAP PO SCH ×2 (08:01→20:50)
[2017-09-27] MEDS: HYDROcodone/Acetaminophen 10/325 mg Tablet PO PRN ×2 (08:02→20:51)
[2017-09-27] MEDS: Rifampin 300 MG CAP PO SCH ×2 (11:30→20:51)
--- NOTE | 2017-09-27 13:23 | PRG ---
DATE OF SERVICE: 09/27/2017 SUBJECTIVE: Ms. Hoyos is doing the same except she feels that the rifampin is irritating her stomach . She did not have much issues last night, but this morning she is having significant nausea. I adv ised her that if it continues to be a problem, then we will just switch her back to vancomycin. OBJECTIVE: VITAL SIGNS: She is afebrile, heart rate 70, respirations 20, oxygen saturation 93%, blood pressure 174/70. CARDIOVASCULAR: S1, S2 plus. RESPIRATORY: Normal vesicular breath sounds. ABDOMEN: Soft, nontender, bowel sounds heard in all quadrants. EXTREMITIES: Without cyanosis or clubbing. IMPRESSION: 1. Resolving right lower extremity cellulitis. 2. Possible recurrence of right knee septic arthritis. 3. Peripheral vascular disease, status post right femoral-popliteal bypass. 4. Diabetes mellitus type 2. 5. Hypertension. 6. Dyslipidemia. 7. Obstructive sleep apnea. PLAN: 1. Continue current medications. 2. Monitor her reaction to rifampin, may need to switch her back to vancomycin. 3. Continue Rocephin and Flagyl. 4. DVT and stress ulcer prophylaxis. 5. An 1800-calorie heart healthy diet. 6. Monitor blood pressure. 7. Nocturnal CPAP. 8. Routine laboratory values. 9. Discussed with patient in detail and all questions answered.
[2017-09-27] MEDS: cefTRIAXone\\ROCEPHIN 2 GM in Sodium Chloride 0.9% 100 ML IVPB SCH (14:32)
[2017-09-27] MEDS: Enoxaparin Sodium 40 MG/0.4 ML SYRINGE SC SCH (20:48)
[2017-09-27] MEDS: Atorvastatin Calcium 10 MG TAB PO SCH (20:50)
[2017-09-27] MEDS: Amlodipine 10 MG TAB PO SCH (20:50)
[2017-09-28] MEDS: Levothyroxine Sodium 125 MCG TAB PO SCH (05:16)
[2017-09-28] MEDS: metroNIDAZOLE 500 MG in Premix Bag 1 BAG IVPB SCH ×3 (05:16→21:19)
[2017-09-28] MEDS: Aspirin 81 mg Enteric Coated Tablet PO SCH (09:47)
[2017-09-28] MEDS: metFORMIN XR 500 MG TAB PO SCH ×2 (09:47→17:19)
[2017-09-28] MEDS: Gabapentin 300 MG CAP PO SCH ×4 (09:48→21:17)
[2017-09-28] MEDS: Atenolol 25 MG TAB PO SCH (09:48)
[2017-09-28] MEDS: Famotidine 20 MG TAB PO SCH ×2 (09:48→21:17)
[2017-09-28] MEDS: Levemir Flexpen 100 UNITS/ML PEN SC SCH (09:49)
[2017-09-28] MEDS: hydrALAZINE 25 MG TAB PO SCH ×3 (09:49→21:18)
[2017-09-28] MEDS: Lisinopril 20 MG TAB PO SCH (09:50)
[2017-09-28] MEDS: Escitalopram Oxalate 10 mg Tablet PO SCH (09:50)
[2017-09-28] MEDS: Saccharomyces boulardii 250 MG CAP PO SCH ×2 (09:51→21:16)
[2017-09-28] MEDS: HYDROcodone/Acetaminophen 10/325 mg Tablet PO PRN ×2 (09:52→21:19)
[2017-09-28] MEDS: Rifampin 300 MG CAP PO SCH ×2 (11:14→21:15)
--- NOTE | 2017-09-28 12:59 | PRG ---
DATE OF SERVICE: 09/28/2017 SUBJECTIVE: Ms. Hoyos is doing better today. She stated that she tolerated the rifampin. Denies an y fever or chills. Denies any chest pain or shortness of breath. OBJECTIVE: VITAL SIGNS: She is afebrile, heart rate 68, respirations 20, oxygen saturation 93%, and blood press ure elevated at 179/75. CARDIOVASCULAR SYSTEM: S1, S2 plus. RESPIRATORY SYSTEM: Normal vesicular breath sounds. ABDOMEN: Soft, obese, nontender, bowel sounds heard in all quadrants. EXTREMITIES: Without cyanosis or clubbing. Trace edema, right leg erythema, pretty much resolved. IMPRESSION: 1. Improving right lower extremity cellulitis. 2. Improving possible recurrence of septic arthritis. 3. Peripheral vascular disease, status post right femoral-popliteal bypass. 4. Diabetes mellitus type 2. 5. Hypertension. 6. Dyslipidemia. 7. Obstructive sleep apnea. 8. Hypertension, not well controlled. PLAN: 1. Increase hydralazine 100 mg t.i.d. 2. Continue current medications. 3. DVT and stress ulcer prophylaxis. 4. Decubitus precautions. 5. Wound care. 6. Accu-Cheks with sliding scale coverage. 7. Nocturnal CPAP and no family at the bedside. Discussed with the patient in detail and all questi ons answered if she continues to do well on the rifampin, and her sed rate and CRP continued to go do wn next week. We will switch her from IV Flagyl to p.o. Flagyl.
[2017-09-28] MEDS: cefTRIAXone\\ROCEPHIN 2 GM in Sodium Chloride 0.9% 100 ML IVPB SCH (13:36)
[2017-09-28] MEDS: Enoxaparin Sodium 40 MG/0.4 ML SYRINGE SC SCH (21:16)
[2017-09-28] MEDS: Amlodipine 10 MG TAB PO SCH (21:17)
[2017-09-28] MEDS: Atorvastatin Calcium 10 MG TAB PO SCH (21:17)
[2017-09-29 05:35] LABS: #Eosinphils 0.4 thou/uL (0.0-0.7); #Lymphocytes 1.3 thou/uL (1.20-3.40); #Monocytes 0.7 thou/uL (0.11-0.59); #Neutrophils 3.4 thou/uL (1.40-6.50); %Basophils 0.7 % (0.0-1.0); %Eosinophils 6.7 % (0.0-10.0); %Lymphocytes 21.7 % (21.0-51.0); %Monocytes 11.3 % (0.0-10.0); %Neutrophils 59.6 % (42.0-75.0); Hemoglobin 9.9 g/dL (12.0-16.0); Mean Corpuscular HGB CONC 32.3 g/dL (32.0-36.0); Mean Corpuscular Hemoglobin 28.4 pg (27.0-31.0); Mean Platelet Volume 8.2 fL (7.4-10.4); Platelet Count 201 thou/uL (130-400); RBC Distribution Width 15.6 % (11.5-14.5); Red Blood Cell (RBC) Count 3.47 mill/uL (4.20-5.40); White Blood Cell (WBC) Count 5.8 thou/uL (4.8-10.8)
[2017-09-29 05:48] LABS: ALT (SGPT) 7 U/L (8-55); AST (SGOT) 9 U/L (5-34); Albumin 3.4 g/dL (3.4-4.8); Alkaline Phosphatase 55 U/L (40-150); Anion Gap 14 mmol/L (10-20); BUN (Urea Nitrogen) 8 mg/dL (9.8-20.1); Bilirubin, Total 0.3 mg/dL (0.2-1.2); CRP (Inflammatory) 1.15 mg/dL (= or < 0.5); Calc. Creatinine Clearance 137 mL/min (70-130); Carbon Dioxide 25 mmol/L (23-31); Chloride 105 mmol/L (98-107); Estimated GFR-MDRD Greater than 90; Globulin 2.9 g/dL (2.4-3.5); Glucose 93 mg/dL (83-110); Potassium 3.4 mmol/L (3.5-5.1); Protein, Total 6.3 g/dL (6.0-8.3); Sodium 141 mmol/L (136-145)
[2017-09-29] MEDS: metroNIDAZOLE 500 MG in Premix Bag 1 BAG IVPB SCH ×3 (05:57→22:08)
[2017-09-29] MEDS: Levothyroxine Sodium 125 MCG TAB PO SCH (05:57)
[2017-09-29 05:59] LABS: Calcium 9.1 mg/dL (7.8-10.44)
[2017-09-29] MEDS: Aspirin 81 mg Enteric Coated Tablet PO SCH (08:59)
[2017-09-29] MEDS: metFORMIN XR 500 MG TAB PO SCH ×2 (08:59→16:18)
[2017-09-29] MEDS: Atenolol 25 MG TAB PO SCH (08:59)
[2017-09-29] MEDS: Gabapentin 300 MG CAP PO SCH ×4 (09:00→21:56)
[2017-09-29] MEDS: Rifampin 300 MG CAP PO SCH ×2 (09:00→22:09)
[2017-09-29] MEDS: Famotidine 20 MG TAB PO SCH ×2 (09:00→21:55)
[2017-09-29] MEDS ORDERED: Potassium Chloride 20 MEQ TAB PO SCH (09:00)
[2017-09-29] MEDS: hydrALAZINE 25 MG TAB PO SCH ×3 (09:01→21:57)
[2017-09-29] MEDS: Levemir Flexpen 100 UNITS/ML PEN SC SCH ×2 (09:01→21:58)
[2017-09-29] MEDS: Lisinopril 20 MG TAB PO SCH (09:02)
[2017-09-29] MEDS: Saccharomyces boulardii 250 MG CAP PO SCH ×2 (09:02→21:55)
[2017-09-29] MEDS: Escitalopram Oxalate 10 mg Tablet PO SCH (09:11)
[2017-09-29] MEDS: HYDROcodone/Acetaminophen 10/325 mg Tablet PO PRN ×3 (09:12→22:20)
--- NOTE | 2017-09-29 09:15 | PRG ---
DATE OF SERVICE: 09/29/2017 SUBJECTIVE: Ms. Hoyos is doing well. Denies any complaints, resting comfortably, tolerating her med ications. She states that she would like to go out and pass for Thanksgiving lunch and therapy is go ing to work with her to make sure she is safe getting in and out of her car. OBJECTIVE: VITAL SIGNS: She is afebrile, heart rate 68, respirations 18, oxygen saturation 97%, blood pressure not documented from this morning, but last night it was 163/72. CARDIOVASCULAR SYSTEM: S1 and S2 plus. RESPIRATORY SYSTEM: Normal vesicular breath sounds. ABDOMEN: Soft, obese, nontender, bowel sounds heard in all quadrants. EXTREMITIES: Without cyanosis or clubbing. Much improved edema. Right leg, no erythema. LABORATORY DATA: Sodium 141, potassium is slightly low at 3.4, BUN and creatinine is 8 and 0.61. Bl ood sugars are 108, 103, 93, 94, AST and ALT are normal. CRP 1.15. White count is 5.8, hemoglobin a nd hematocrit is 9.9 and 30.5 with sedimentation rate of 56. IMPRESSION: 1. Resolving right lower extremity cellulitis. 2. Improving recurrent septic arthritis. 3. Peripheral vascular disease, status post right femoral-popliteal bypass. 4. Hypokalemia. 5. Hypertension. 6. Dyslipidemia. 7. Diabetes mellitus type 2. 8. Obstructive sleep apnea. PLAN: 1. Replace potassium. 2. Continue current medications. 3. Anticipate switching her Flagyl to p.o. on Monday. 4. Continue DVT and stress ulcer prophylaxis. 5. Decubitus precautions. 6. Decubitus care. 7. Physical therapy. 8. Adjust timing on Rocephin, so she can go out and pass for Thanksgiving lunch.
[2017-09-29] MEDS: Ondansetron ODT 4 MG TAB SL PRN (12:14)
[2017-09-29] MEDS: cefTRIAXone\\ROCEPHIN 2 GM in Sodium Chloride 0.9% 100 ML IVPB SCH (14:17)
[2017-09-29] MEDS: Atorvastatin Calcium 10 MG TAB PO SCH (21:56)
[2017-09-29] MEDS: Amlodipine 10 MG TAB PO SCH (21:56)
[2017-09-29] MEDS: Enoxaparin Sodium 40 MG/0.4 ML SYRINGE SC SCH (21:57)
[2017-09-30] MEDS: metroNIDAZOLE 500 MG in Premix Bag 1 BAG IVPB SCH ×4 (06:15→21:58)
[2017-09-30] MEDS: Levothyroxine Sodium 125 MCG TAB PO SCH (06:15)
[2017-09-30] MEDS: Levemir Flexpen 100 UNITS/ML PEN SC SCH ×2 (08:52→20:10)
[2017-09-30] MEDS: HYDROcodone/Acetaminophen 10/325 mg Tablet PO PRN ×3 (09:00→20:12)
[2017-09-30] MEDS: Atenolol 25 MG TAB PO SCH (09:01)
[2017-09-30] MEDS: Saccharomyces boulardii 250 MG CAP PO SCH ×2 (09:01→20:11)
[2017-09-30] MEDS: Escitalopram Oxalate 10 mg Tablet PO SCH (09:02)
[2017-09-30] MEDS: hydrALAZINE 25 MG TAB PO SCH ×3 (09:02→20:11)
[2017-09-30] MEDS: metFORMIN XR 500 MG TAB PO SCH ×2 (09:03→17:28)
[2017-09-30] MEDS: Gabapentin 300 MG CAP PO SCH ×4 (09:03→20:11)
[2017-09-30] MEDS: Lisinopril 20 MG TAB PO SCH (09:03)
[2017-09-30] MEDS: Aspirin 81 mg Enteric Coated Tablet PO SCH (09:03)
[2017-09-30] MEDS: Famotidine 20 MG TAB PO SCH ×2 (09:03→20:12)
[2017-09-30] MEDS: Rifampin 300 MG CAP PO SCH ×2 (11:15→22:04)
[2017-09-30] MEDS: Ondansetron ODT 4 MG TAB SL PRN (11:16)
[2017-09-30] MEDS: cefTRIAXone\\ROCEPHIN 2 GM in Sodium Chloride 0.9% 100 ML IVPB SCH (13:46)
[2017-09-30] MEDS: Enoxaparin Sodium 40 MG/0.4 ML SYRINGE SC SCH (20:09)
[2017-09-30] MEDS: Amlodipine 10 MG TAB PO SCH (20:12)
[2017-09-30] MEDS: Atorvastatin Calcium 10 MG TAB PO SCH (20:12)
--- NOTE | 2017-09-30 21:51 | PRG ---
DATE OF SERVICE: 09/30/2017 SUBJECTIVE: The patient feels well, sitting up in the chair, working crossword puzzle. OBJECTIVE: Shows her blood pressure is still elevated at 172/70 to 189/75, temperature is 98, pulse 78, respirations 18. Laboratory show, however, Accu-Cheks are consistently lower than 96 down to 55 this morning. Lungs are clear. Cardiac examination shows regular rhythm. Sed rate is slightly impr jesse at 56. White count 5800, hematocrit 30, hemoglobin 9.9. ASSESSMENT: 1. Slowly resolving current septic arthritis of the right knee on IV Rocephin. 2. Improved control of diabetes with recurrent hypoglycemia. 3. Improving deconditioning, walking in the [place]. PLAN: 1. Decrease Levemir to 25 units at night, 20 units in the morning. 2. Continue IV Rocephin. 3. Continue PT and OT.
[2017-10-01] MEDS: metroNIDAZOLE 500 MG in Premix Bag 1 BAG IVPB SCH ×3 (05:41→22:00)
[2017-10-01] MEDS: Levothyroxine Sodium 125 MCG TAB PO SCH (05:41)
[2017-10-01] MEDS: Gabapentin 300 MG CAP PO SCH ×4 (08:30→20:39)
[2017-10-01] MEDS: Saccharomyces boulardii 250 MG CAP PO SCH ×2 (08:30→20:39)
[2017-10-01] MEDS: Aspirin 81 mg Enteric Coated Tablet PO SCH (08:31)
[2017-10-01] MEDS: metFORMIN XR 500 MG TAB PO SCH ×2 (08:31→17:08)
[2017-10-01] MEDS: Famotidine 20 MG TAB PO SCH ×2 (08:32→20:40)
[2017-10-01] MEDS: Atenolol 25 MG TAB PO SCH (08:33)
[2017-10-01] MEDS: Escitalopram Oxalate 10 mg Tablet PO SCH (08:33)
[2017-10-01] MEDS: Lisinopril 20 MG TAB PO SCH (08:34)
[2017-10-01] MEDS: HYDROcodone/Acetaminophen 10/325 mg Tablet PO PRN ×2 (08:35→20:40)
[2017-10-01] MEDS: hydrALAZINE 25 MG TAB PO SCH ×2 (08:35→15:22)
[2017-10-01] MEDS: Levemir Flexpen 100 UNITS/ML PEN SC SCH ×2 (08:38→20:38)
[2017-10-01] MEDS: Rifampin 300 MG CAP PO SCH ×2 (11:16→22:02)
[2017-10-01] MEDS: Ondansetron ODT 4 MG TAB SL PRN ×2 (11:17→22:02)
[2017-10-01] MEDS: cefTRIAXone\\ROCEPHIN 2 GM in Sodium Chloride 0.9% 100 ML IVPB SCH (14:22)
[2017-10-01] MEDS ORDERED: hydrALAZINE 10 MG TAB ONE (20:15)
[2017-10-01] MEDS ORDERED: hydrALAZINE 10 MG TAB PO SCH (20:30)
[2017-10-01] MEDS ORDERED: Aspirin 81 mg Enteric Coated Tablet ONE (20:32)
[2017-10-01] MEDS: Enoxaparin Sodium 40 MG/0.4 ML SYRINGE SC SCH (20:39)
[2017-10-01] MEDS: Atorvastatin Calcium 10 MG TAB PO SCH (20:40)
[2017-10-01] MEDS: Amlodipine 10 MG TAB PO SCH (20:40)
--- NOTE | 2017-10-01 20:41 | PRG ---
DATE OF SERVICE: 10/01/2017 SUBJECTIVE: The patient complains of recurrent headache and is still having uncontrolled blood press ure despite having her medication increased to now taking atenolol 75 mg daily, hydralazine 100 three times daily, lisinopril 40 daily. Denies any chest pain, shortness of breath or palpitations. Does complain of persistent pain in her left ankle and heel. Right heel does show a subcutaneous hematom a and poorly healing right Achilles ulcer. OBJECTIVE: LUNGS: Clear. CARDIAC: Shows regular rhythm. ABDOMEN: Soft and nontender. ASSESSMENT: 1. Slowly healing right Achilles ulcer and cellulitis 2. Resolving septic arthritis. 3. Stable peripheral vascular disease, status post right femoral popliteal bypass. 4. New problem with heel, hematoma. No evidence for decubitus. 5. Obstructive sleep apnea, stable on CPAP. 6. Uncontrolled hypertension. PLAN: Start clonidine 0.1 mg at bedtime. Continue Flagyl and Rocephin per recommendation of Dr. Freda gudino. Start heel protectors to right heel. Continue PT, OT.
[2017-10-01] MEDS ORDERED: cloNIDine 0.1 MG TAB PO SCH (21:00)
[2017-10-02] MEDS: Levothyroxine Sodium 125 MCG TAB PO SCH (05:56)
[2017-10-02] MEDS: metroNIDAZOLE 500 MG in Premix Bag 1 BAG IVPB SCH ×3 (05:56→22:22)
[2017-10-02] MEDS: Atenolol 25 MG TAB PO SCH (08:21)
[2017-10-02] MEDS: Aspirin 81 mg Enteric Coated Tablet PO SCH (08:21)
[2017-10-02] MEDS: metFORMIN XR 500 MG TAB PO SCH ×2 (08:21→17:14)
[2017-10-02] MEDS: Famotidine 20 MG TAB PO SCH ×2 (08:22→20:43)
[2017-10-02] MEDS: Escitalopram Oxalate 10 mg Tablet PO SCH (08:22)
[2017-10-02] MEDS: Gabapentin 300 MG CAP PO SCH ×4 (08:22→20:42)
[2017-10-02] MEDS: hydrALAZINE 25 MG TAB PO SCH ×4 (08:23→20:43)
[2017-10-02] MEDS: Levemir Flexpen 100 UNITS/ML PEN SC SCH ×2 (08:23→20:41)
[2017-10-02] MEDS: Lisinopril 20 MG TAB PO SCH (08:24)
[2017-10-02] MEDS: Saccharomyces boulardii 250 MG CAP PO SCH ×2 (08:24→20:44)
[2017-10-02] MEDS: Rifampin 300 MG CAP PO SCH ×2 (10:08→22:22)
[2017-10-02] MEDS: cefTRIAXone\\ROCEPHIN 2 GM in Sodium Chloride 0.9% 100 ML IVPB SCH (13:47)
[2017-10-02] MEDS: cloNIDine 0.1 MG TAB PO SCH ×2 (15:06→20:44)
[2017-10-02] MEDS: HYDROcodone/Acetaminophen 10/325 mg Tablet PO PRN (18:12)
--- NOTE | 2017-10-02 18:19 | PRG ---
DATE OF SERVICE: 10/02/2017 SUBJECTIVE: Ms. Hoyos is doing well. She did develop some bleeding and some oozing in the right trina l decubitus site. She is doing well otherwise, tolerating her medications and her rifampin. She als o wants to go home on a pass for Thanksgiving. Discussed with Therapy and they are going to teach he r how to get in and out of the car. Her antibiotic timings have been adjusted, so that she is not go ing to miss any doses. OBJECTIVE: VITAL SIGNS: On examination, she is afebrile, heart rate is 78, respirations 20, oxygen saturation 9 6%, blood pressure is 166/72. CARDIOVASCULAR: S1, S2 plus. RESPIRATORY: Normal vesicular breath sounds. ABDOMEN: Soft, nontender, bowel sounds heard in all quadrants. EXTREMITIES: Without cyanosis or clubbing. Right heel with dressing. IMPRESSION: 1. Resolving right lower extremity cellulitis. 2. Improving right knee septic arthritis, recurrence. 3. Right heel decubitus stage 4. 4. Peripheral vascular disease, status post femoral-popliteal bypass. 6. Diabetes mellitus type 2. 7. Hypertension. 8. Dyslipidemia. 9. Obstructive sleep apnea. PLAN: 1. Continue current medications. 2. Add clonidine 0.1 mg p.o. t.i.d. 3. 1800 calorie heart healthy ADA diet. 4. Accu-Cheks with sliding scale coverage. 5. DVT and stress ulcer prophylaxis. 6. Continue antibiotics. 7. Weekly CBC, CRP, and sed rate, next check is due on the . Discussed with the patient in deta il and all questions answered.
[2017-10-02] MEDS: Enoxaparin Sodium 40 MG/0.4 ML SYRINGE SC SCH (20:40)
[2017-10-02] MEDS: Amlodipine 10 MG TAB PO SCH (20:43)
[2017-10-02] MEDS: Atorvastatin Calcium 10 MG TAB PO SCH (20:43)
[2017-10-02] MEDS: Ondansetron ODT 4 MG TAB SL PRN (22:22)
[2017-10-03] MEDS: metroNIDAZOLE 500 MG in Premix Bag 1 BAG IVPB SCH ×3 (05:39→21:12)
[2017-10-03] MEDS: Levothyroxine Sodium 125 MCG TAB PO SCH (05:39)
[2017-10-03] MEDS: metFORMIN XR 500 MG TAB PO SCH ×3 (08:21→18:03)
[2017-10-03] MEDS: Atenolol 25 MG TAB PO SCH (08:22)
[2017-10-03] MEDS: Aspirin 81 mg Enteric Coated Tablet PO SCH (08:22)
[2017-10-03] MEDS: Famotidine 20 MG TAB PO SCH ×2 (08:23→21:09)
[2017-10-03] MEDS: cloNIDine 0.1 MG TAB PO SCH ×3 (08:23→21:10)
[2017-10-03] MEDS: hydrALAZINE 25 MG TAB PO SCH ×3 (08:23→21:08)
[2017-10-03] MEDS: Escitalopram Oxalate 10 mg Tablet PO SCH (08:23)
[2017-10-03] MEDS: Gabapentin 300 MG CAP PO SCH ×4 (08:23→21:08)
[2017-10-03] MEDS: Levemir Flexpen 100 UNITS/ML PEN SC SCH ×2 (08:23→21:11)
[2017-10-03] MEDS: Lisinopril 20 MG TAB PO SCH (08:24)
[2017-10-03] MEDS: Saccharomyces boulardii 250 MG CAP PO SCH ×2 (08:24→21:08)
[2017-10-03] MEDS: Rifampin 300 MG CAP PO SCH ×2 (11:42→22:16)
[2017-10-03] MEDS: cefTRIAXone\\ROCEPHIN 2 GM in Sodium Chloride 0.9% 100 ML IVPB SCH (13:20)
--- NOTE | 2017-10-03 13:44 | PRG ---
DATE OF SERVICE: 10/03/2017 SUBJECTIVE: Ms. Hoyos is doing well. Denies any complaints, resting comfortably, no further oozing from her right heel decubitus. She has an appointment scheduled with Wound Care on 10/13/2017. She is tolerating her medications. OBJECTIVE: VITAL SIGNS: She is afebrile, heart rate is 65, respirations 20, oxygen saturation 93%, blood pressu re is 166/72. CARDIOVASCULAR SYSTEM: S1, S2 plus. RESPIRATORY SYSTEM: Normal vesicular breath sounds. ABDOMEN: Soft, obese, nontender, bowel sounds heard. EXTREMITIES: Without cyanosis or clubbing. Right heel decubitus with dressing. Trace edema, right leg. No erythema. IMPRESSION: 1. Resolving right lower extremity cellulitis. 2. Improving recurrent septic arthritis, right knee. 3. Peripheral vascular disease status post femoropopliteal bypass. 4. Diabetes mellitus type 2. 5. Hypertension. 6. Dyslipidemia. 7. Obstructive sleep apnea. 8. Right heel decubitus, stage 4. PLAN: 1. Continue current medications. 2. Wound care. 3. Nutritional support. 4. Continue antibiotics. 5. Weekly CBC, CMP, and sed rate. 6. An 1800-calorie Heart healthy ADA diet. 7. Accu-Cheks. 8. Sliding scale coverage. 9. Nocturnal CPAP. 10. Discussed with patient in detail and all questions answered.
[2017-10-03] MEDS: HYDROcodone/Acetaminophen 10/325 mg Tablet PO PRN (21:07)
[2017-10-03] MEDS: Amlodipine 10 MG TAB PO SCH (21:08)
[2017-10-03] MEDS: Atorvastatin Calcium 10 MG TAB PO SCH (21:09)
[2017-10-03] MEDS: Enoxaparin Sodium 40 MG/0.4 ML SYRINGE SC SCH (21:11)
[2017-10-03] MEDS: Ondansetron ODT 4 MG TAB SL PRN (22:16)
[2017-10-04] MEDS: metroNIDAZOLE 500 MG in Premix Bag 1 BAG IVPB SCH ×3 (05:02→20:14)
[2017-10-04] MEDS: Levothyroxine Sodium 125 MCG TAB PO SCH (05:02)
[2017-10-04] MEDS: Gabapentin 300 MG CAP PO SCH ×4 (08:03→20:12)
[2017-10-04] MEDS: cloNIDine 0.1 MG TAB PO SCH (08:03)
[2017-10-04] MEDS: Saccharomyces boulardii 250 MG CAP PO SCH ×2 (08:03→20:14)
[2017-10-04] MEDS: Escitalopram Oxalate 10 mg Tablet PO SCH (08:03)
[2017-10-04] MEDS: metFORMIN XR 500 MG TAB PO SCH ×2 (08:03→16:57)
[2017-10-04] MEDS: Atenolol 25 MG TAB PO SCH (08:04)
[2017-10-04] MEDS: hydrALAZINE 25 MG TAB PO SCH ×3 (08:04→20:12)
[2017-10-04] MEDS: Famotidine 20 MG TAB PO SCH ×2 (08:05→20:12)
[2017-10-04] MEDS: Aspirin 81 mg Enteric Coated Tablet PO SCH (08:05)
[2017-10-04] MEDS: Lisinopril 20 MG TAB PO SCH (08:05)
[2017-10-04] MEDS: Levemir Flexpen 100 UNITS/ML PEN SC SCH ×2 (08:06→20:13)
[2017-10-04] MEDS: HYDROcodone/Acetaminophen 10/325 mg Tablet PO PRN ×2 (08:08→20:15)
[2017-10-04] MEDS: Rifampin 300 MG CAP PO SCH ×2 (11:14→20:30)
[2017-10-04] MEDS: Ondansetron ODT 4 MG TAB SL PRN ×2 (11:14→20:30)
--- NOTE | 2017-10-04 13:30 | PRG ---
DATE OF SERVICE: 10/04/2017 SUBJECTIVE: Ms. Hoyos is doing well. Denies any complaints, resting comfortably. OBJECTIVE: VITAL SIGNS: She is afebrile, heart rate is 68, respirations 16, oxygen saturation is 94%, blood pre ssure 176/80. CARDIOVASCULAR: S1, S2 plus. RESPIRATORY: Normal vesicular breath sounds. ABDOMEN: Soft, obese, nontender, bowel sounds heard in all quadrants. EXTREMITIES: Without cyanosis or clubbing. Improving edema, right lower extremity. Right heel decu bitus with dressing. No further bleeding. IMPRESSION: 1. Right heel decubitus, stage 4. 2. Right leg cellulitis, much improved. 3. Right knee septic arthritis. 4. Peripheral vascular disease, status post right femoral-popliteal bypass. 5. Diabetes mellitus type 2. 6. Hypertension, not well controlled. 7. Obesity. 8. Obstructive sleep apnea. PLAN: 1. Continue current medications. 2. 1800 calorie heart healthy ADA diet. 3. Nocturnal CPAP. 4. DVT and stress ulcer prophylaxis. 5. Decubitus precautions. 6. Weekly CBC, CRP, and sed rate is due on the . 7. Continue wound care. 8. Outpatient appointment with Wound Care on 10/13/2017. 9. Discussed with patient in detail and all questions answered. 10. She is medically stable to go out on pass tomorrow. 11. Dr. Sunshine almond huller noon today until 9:00 p.m. Monday.
[2017-10-04] MEDS: cefTRIAXone\\ROCEPHIN 2 GM in Sodium Chloride 0.9% 100 ML IVPB SCH (14:40)
[2017-10-04] MEDS: cloNIDine 0.2 MG TAB PO SCH ×2 (16:03→20:11)
[2017-10-04] MEDS: Atorvastatin Calcium 10 MG TAB PO SCH (20:11)
[2017-10-04] MEDS: Enoxaparin Sodium 40 MG/0.4 ML SYRINGE SC SCH (20:11)
[2017-10-04] MEDS: Amlodipine 10 MG TAB PO SCH (20:11)
[2017-10-05] MEDS: Levothyroxine Sodium 125 MCG TAB PO SCH (05:47)
[2017-10-05] MEDS: metroNIDAZOLE 500 MG in Premix Bag 1 BAG IVPB SCH ×4 (05:47→20:35)
[2017-10-05] MEDS: Levemir Flexpen 100 UNITS/ML PEN SC SCH ×2 (07:54→20:34)
[2017-10-05] MEDS: HYDROcodone/Acetaminophen 10/325 mg Tablet PO PRN ×2 (07:55→18:36)
[2017-10-05] MEDS: Atenolol 25 MG TAB PO SCH (07:57)
[2017-10-05] MEDS: hydrALAZINE 25 MG TAB PO SCH ×3 (07:58→20:34)
[2017-10-05] MEDS: Saccharomyces boulardii 250 MG CAP PO SCH ×2 (07:58→20:35)
[2017-10-05] MEDS: Gabapentin 300 MG CAP PO SCH ×5 (07:58→20:34)
[2017-10-05] MEDS: Famotidine 20 MG TAB PO SCH ×2 (07:58→20:34)
[2017-10-05] MEDS: Lisinopril 20 MG TAB PO SCH (07:58)
[2017-10-05] MEDS: Aspirin 81 mg Enteric Coated Tablet PO SCH (07:59)
[2017-10-05] MEDS: metFORMIN XR 500 MG TAB PO SCH ×3 (07:59→18:36)
[2017-10-05] MEDS: Escitalopram Oxalate 10 mg Tablet PO SCH (07:59)
[2017-10-05] MEDS: cloNIDine 0.2 MG TAB PO SCH ×3 (07:59→20:33)
[2017-10-05] MEDS: cefTRIAXone\\ROCEPHIN 2 GM in Sodium Chloride 0.9% 100 ML IVPB SCH ×2 (10:34→12:33)
[2017-10-05] MEDS: Rifampin 300 MG CAP PO SCH ×2 (10:40→22:01)
[2017-10-05] MEDS: Ondansetron ODT 4 MG TAB SL PRN ×2 (10:40→22:01)
[2017-10-05] MEDS: Atorvastatin Calcium 10 MG TAB PO SCH (20:33)
[2017-10-05] MEDS: Amlodipine 10 MG TAB PO SCH (20:33)
[2017-10-05] MEDS: Enoxaparin Sodium 40 MG/0.4 ML SYRINGE SC SCH (20:33)
--- NOTE | 2017-10-05 20:58 | PRG ---
DATE OF SERVICE: 10/05/2017 SUBJECTIVE: The patient feels well, no complaints, cooperating well with therapy, having decreasing pain in right hip and heel. OBJECTIVE: VITAL SIGNS: Showed blood pressure is up to 196/81, temperature is 96, pulse 62, respirations 16. LUNGS: Clear. CARDIAC EXAMINATION: Shows regular rhythm. ABDOMEN: Soft and nontender. SKIN AND EXTREMITIES: Displayed right foot healing with dressing, improving edema. ASSESSMENT: 1. Uncontrolled hypertension. 2. Right heel decubitus, stage III, unstageable. 3. Right leg cellulitis, improved. 4. Type 2 diabetes, good control. PLAN: Continue atenolol 75 daily. Continue clonidine 0.2 three times daily. Continue hydralazine 1 00 three times daily. Continue lisinopril 40 daily, and we will most likely increase the atenolol to day to 100 mg daily, and then may need to increase clonidine or change to minoxidil.
[2017-10-06] MEDS: metroNIDAZOLE 500 MG in Premix Bag 1 BAG IVPB SCH ×3 (05:19→21:15)
[2017-10-06] MEDS: Levothyroxine Sodium 125 MCG TAB PO SCH (05:19)
[2017-10-06] MEDS: Levemir Flexpen 100 UNITS/ML PEN SC SCH ×2 (08:10→21:12)
[2017-10-06] MEDS: Saccharomyces boulardii 250 MG CAP PO SCH ×2 (08:12→21:11)
[2017-10-06] MEDS: hydrALAZINE 25 MG TAB PO SCH ×3 (08:12→21:10)
[2017-10-06] MEDS: Lisinopril 20 MG TAB PO SCH (08:13)
[2017-10-06] MEDS: Famotidine 20 MG TAB PO SCH ×2 (08:13→21:11)
[2017-10-06] MEDS: Escitalopram Oxalate 10 mg Tablet PO SCH (08:13)
[2017-10-06] MEDS: Aspirin 81 mg Enteric Coated Tablet PO SCH (08:13)
[2017-10-06] MEDS: cloNIDine 0.2 MG TAB PO SCH ×3 (08:13→21:11)
[2017-10-06] MEDS: Gabapentin 300 MG CAP PO SCH ×4 (08:13→21:11)
[2017-10-06] MEDS: Atenolol 25 MG TAB PO SCH (08:13)
[2017-10-06] MEDS: metFORMIN XR 500 MG TAB PO SCH ×2 (08:14→17:22)
[2017-10-06] MEDS: HYDROcodone/Acetaminophen 10/325 mg Tablet PO PRN ×2 (08:14→15:54)
[2017-10-06] MEDS: Rifampin 300 MG CAP PO SCH ×2 (11:39→22:30)
[2017-10-06] MEDS: Ondansetron ODT 4 MG TAB SL PRN ×2 (11:39→22:33)
[2017-10-06] MEDS: cefTRIAXone\\ROCEPHIN 2 GM in Sodium Chloride 0.9% 100 ML IVPB SCH (13:10)
[2017-10-06] MEDS: Enoxaparin Sodium 40 MG/0.4 ML SYRINGE SC SCH (21:10)
[2017-10-06] MEDS: Atorvastatin Calcium 10 MG TAB PO SCH (21:11)
[2017-10-06] MEDS: Amlodipine 10 MG TAB PO SCH (21:12)
[2017-10-07] MEDS: metroNIDAZOLE 500 MG in Premix Bag 1 BAG IVPB SCH ×3 (05:31→21:11)
[2017-10-07] MEDS: Levothyroxine Sodium 125 MCG TAB PO SCH (05:32)
[2017-10-07] MEDS ORDERED: Atenolol 25 MG TAB ONE (07:35)
[2017-10-07] MEDS ORDERED: cloNIDine 0.2 MG TAB ONE (07:36)
[2017-10-07] MEDS: Levemir Flexpen 100 UNITS/ML PEN SC SCH ×2 (08:27→21:07)
[2017-10-07] MEDS: cloNIDine 0.2 MG TAB PO SCH ×3 (08:28→21:09)
[2017-10-07] MEDS: metFORMIN XR 500 MG TAB PO SCH ×2 (08:28→17:05)
[2017-10-07] MEDS: Saccharomyces boulardii 250 MG CAP PO SCH ×2 (08:29→21:09)
[2017-10-07] MEDS: hydrALAZINE 25 MG TAB PO SCH ×3 (08:29→21:09)
[2017-10-07] MEDS: Gabapentin 300 MG CAP PO SCH ×4 (08:29→21:08)
[2017-10-07] MEDS: Aspirin 81 mg Enteric Coated Tablet PO SCH (08:30)
[2017-10-07] MEDS: Escitalopram Oxalate 10 mg Tablet PO SCH (08:30)
[2017-10-07] MEDS: Famotidine 20 MG TAB PO SCH ×2 (08:30→21:10)
[2017-10-07] MEDS: Atenolol 25 MG TAB PO SCH (08:30)
[2017-10-07] MEDS: Lisinopril 20 MG TAB PO SCH (08:30)
[2017-10-07] MEDS: HYDROcodone/Acetaminophen 10/325 mg Tablet PO PRN (08:30)
[2017-10-07] MEDS: Rifampin 300 MG CAP PO SCH ×2 (11:25→22:15)
[2017-10-07] MEDS: Ondansetron ODT 4 MG TAB SL PRN ×2 (11:25→22:17)
[2017-10-07] MEDS: cefTRIAXone\\ROCEPHIN 2 GM in Sodium Chloride 0.9% 100 ML IVPB SCH (13:51)
[2017-10-07] MEDS ORDERED: Minoxidil 2.5 MG TAB PO SCH (20:00)
--- NOTE | 2017-10-07 20:45 | PRG ---
DATE OF SERVICE: 10/07/2017 SUBJECTIVE: The patient feels well, lying in the bed with no complaints of shortness breath, chest p ain, palpitations, having stable pain in her right ankle and heel. Accu-Cheks ranged from 93 to 100. OBJECTIVE: VITAL SIGNS: Shows blood pressure of 154/70, temperature is 98.1, pulse 67, respirations 20, O2 sats 97%. LUNGS: Clear. CARDIAC EXAMINATION: Shows regular rhythm. EXTREMITIES: Right foot is bandaged. ASSESSMENT: 1. Resolving cellulitis of the right heel and leg. 2. Uncontrolled hypertension on multiple medications, improved tonight. 3. Type 2 diabetes, controlled to goal. PLAN: Continue atenolol 100 daily, clonidine 0.2 three times daily, hydralazine 100 three times fidencio y, and lisinopril 40 daily. Monitor blood pressure closely.
[2017-10-07] MEDS: Enoxaparin Sodium 40 MG/0.4 ML SYRINGE SC SCH (21:07)
[2017-10-07] MEDS: Atorvastatin Calcium 10 MG TAB PO SCH (21:08)
[2017-10-07] MEDS: Amlodipine 10 MG TAB PO SCH (21:09)
--- NOTE | 2017-10-07 22:28 | PRG ---
DATE OF SERVICE: 10/07/2017 SUBJECTIVE: Patient feels well, lying in bed, but only some pain in the right heel and calf. No sukhwinder rtness of breath, chest pain, headache. OBJECTIVE: Show blood pressure is still significantly elevated to 199/81 despite increasing atenolol yesterday, temperature 98.1, pulse 64, respirations 18, O2 sats 94%. Lungs clear. Cardiac examinat ion shows regular rhythm. Abdomen is soft and nontender. ASSESSMENT: 1. Uncontrolled hypertension on multiple medications. 2. Resolving cellulitis with exposed tendon. 3. Stage 2 to 3 heel decubitus. 4. Peripheral vascular disease. 5. Status post right iliofemoral stents. 6. Type 2 diabetes, good control. PLAN: Add minoxidil 5 mg at bedtime. Continue other medications. Monitor blood pressure closely an d discuss renal artery stenosis and evaluation with Dr. Hall and Dr. Pearce.
[2017-10-08] MEDS: Levothyroxine Sodium 125 MCG TAB PO SCH (05:14)
[2017-10-08] MEDS: metroNIDAZOLE 500 MG in Premix Bag 1 BAG IVPB SCH ×3 (05:14→21:06)
[2017-10-08 05:35] LABS: Anion Gap 16 mmol/L (10-20); BUN (Urea Nitrogen) 9 mg/dL (9.8-20.1); Calc. Creatinine Clearance 141 mL/min (70-130); Carbon Dioxide 26 mmol/L (23-31); Chloride 103 mmol/L (98-107); Estimated GFR-MDRD Greater than 90; Glucose 86 mg/dL (83-110); Sodium 141 mmol/L (136-145)
[2017-10-08 05:49] LABS: Calcium 9.1 mg/dL (7.8-10.44)
[2017-10-08] MEDS: metFORMIN XR 500 MG TAB PO SCH ×2 (08:14→17:07)
[2017-10-08] MEDS: Aspirin 81 mg Enteric Coated Tablet PO SCH (08:15)
[2017-10-08] MEDS: Atenolol 25 MG TAB PO SCH (08:17)
[2017-10-08] MEDS: cloNIDine 0.2 MG TAB PO SCH ×3 (08:20→21:04)
[2017-10-08] MEDS: Famotidine 20 MG TAB PO SCH ×2 (08:21→21:04)
[2017-10-08] MEDS: hydrALAZINE 25 MG TAB PO SCH ×3 (08:21→21:04)
[2017-10-08] MEDS: Gabapentin 300 MG CAP PO SCH ×4 (08:21→21:04)
[2017-10-08] MEDS: Escitalopram Oxalate 10 mg Tablet PO SCH (08:21)
[2017-10-08] MEDS: Lisinopril 20 MG TAB PO SCH (08:22)
[2017-10-08] MEDS: Levemir Flexpen 100 UNITS/ML PEN SC SCH ×2 (08:22→21:05)
[2017-10-08] MEDS: Saccharomyces boulardii 250 MG CAP PO SCH ×2 (08:23→21:05)
[2017-10-08] MEDS: Minoxidil 2.5 MG TAB PO SCH (08:23)
[2017-10-08] MEDS ORDERED: HYDROcodone/Acetaminophen 10/325 mg Tablet PO PRN (09:49)
[2017-10-08] MEDS: HYDROcodone/Acetaminophen 10/325 mg Tablet PO PRN ×2 (10:05→22:20)
[2017-10-08] MEDS: Rifampin 300 MG CAP PO SCH ×2 (11:09→22:12)
[2017-10-08] MEDS: Ondansetron ODT 4 MG TAB SL PRN ×2 (11:09→22:12)
[2017-10-08] MEDS: cefTRIAXone\\ROCEPHIN 2 GM in Sodium Chloride 0.9% 100 ML IVPB SCH (13:07)
[2017-10-08] MEDS: Enoxaparin Sodium 40 MG/0.4 ML SYRINGE SC SCH (21:03)
[2017-10-08] MEDS: Atorvastatin Calcium 10 MG TAB PO SCH (21:03)
[2017-10-08] MEDS: Amlodipine 10 MG TAB PO SCH (21:05)
[2017-10-09] MEDS: metroNIDAZOLE 500 MG in Premix Bag 1 BAG IVPB SCH ×3 (05:22→21:18)
[2017-10-09] MEDS: Levothyroxine Sodium 125 MCG TAB PO SCH (05:23)
[2017-10-09] MEDS: Levemir Flexpen 100 UNITS/ML PEN SC SCH ×2 (08:12→21:17)
[2017-10-09] MEDS: Gabapentin 300 MG CAP PO SCH ×4 (08:14→21:16)
[2017-10-09] MEDS: Saccharomyces boulardii 250 MG CAP PO SCH ×2 (08:14→21:17)
[2017-10-09] MEDS: Lisinopril 20 MG TAB PO SCH (08:15)
[2017-10-09] MEDS: Escitalopram Oxalate 10 mg Tablet PO SCH (08:15)
[2017-10-09] MEDS: Minoxidil 2.5 MG TAB PO SCH (08:16)
[2017-10-09] MEDS: metFORMIN XR 500 MG TAB PO SCH ×2 (08:16→16:55)
[2017-10-09] MEDS: Aspirin 81 mg Enteric Coated Tablet PO SCH (08:16)
[2017-10-09] MEDS: cloNIDine 0.2 MG TAB PO SCH ×3 (08:16→21:15)
[2017-10-09] MEDS: Famotidine 20 MG TAB PO SCH ×2 (08:16→21:16)
[2017-10-09] MEDS: Atenolol 25 MG TAB PO SCH (08:19)
[2017-10-09] MEDS: HYDROcodone/Acetaminophen 10/325 mg Tablet PO PRN ×2 (08:29→21:19)
[2017-10-09] MEDS: Rifampin 300 MG CAP PO SCH ×2 (10:59→21:18)
[2017-10-09] MEDS: Ondansetron ODT 4 MG TAB SL PRN ×2 (10:59→21:24)
[2017-10-09] MEDS: hydrALAZINE 25 MG TAB PO SCH ×3 (11:59→21:16)
[2017-10-09] MEDS: cefTRIAXone\\ROCEPHIN 2 GM in Sodium Chloride 0.9% 100 ML IVPB SCH (13:30)
--- NOTE | 2017-10-09 13:44 | PRG ---
DATE OF SERVICE: 10/09/2017 SUBJECTIVE: Ms. Hoyos is doing well. Denies any complaints, resting comfortably, tolerating her the rapy and her antibiotics. OBJECTIVE: VITAL SIGNS: She is afebrile, heart rate 64, respirations 16, oxygen saturation 94%, and blood press ure is 192/79. CARDIOVASCULAR SYSTEM: S1 and S2 plus. RESPIRATORY SYSTEM: Normal vesicular breath sounds. ABDOMEN: Soft, obese, nontender, bowel sounds heard in all quadrants. EXTREMITIES: Without cyanosis or clubbing. Resolving edema, right lower extremity. IMPRESSION: 1. Resolved right lower extremity cellulitis. 2. Improving right knee septic arthritis. 3. Hypertension, not well controlled. 4. Diabetes mellitus type 2. 5. Dyslipidemia. 6. Obstructive sleep apnea. PLAN: 1. Continue current medications. 2. Nutritional support. 3. DVT and stress ulcer prophylaxis. 4. Decubitus precautions. 5. Check CBC, CRP, and sed rate, and I anticipate switching her over to p.o. Flagyl. We will discus s with Cardiology to see if they did renal artery Doppler and rule out renal artery stenosis.
[2017-10-09] MEDS: Amlodipine 10 MG TAB PO SCH (21:14)
[2017-10-09] MEDS: Atorvastatin Calcium 10 MG TAB PO SCH (21:15)
[2017-10-09] MEDS: Enoxaparin Sodium 40 MG/0.4 ML SYRINGE SC SCH (21:16)
[2017-10-10] MEDS: Levothyroxine Sodium 125 MCG TAB PO SCH (05:13)
[2017-10-10] MEDS: metroNIDAZOLE 500 MG in Premix Bag 1 BAG IVPB SCH ×3 (05:13→20:22)
[2017-10-10 05:15] LABS: #Eosinphils 0.2 thou/uL (0.0-0.7); #Lymphocytes 1.3 thou/uL (1.20-3.40); #Monocytes 0.5 thou/uL (0.11-0.59); #Neutrophils 3.3 thou/uL (1.40-6.50); %Basophils 0.9 % (0.0-1.0); %Eosinophils 3.3 % (0.0-10.0); %Lymphocytes 24.5 % (21.0-51.0); %Monocytes 10.1 % (0.0-10.0); %Neutrophils 61.3 % (42.0-75.0); Mean Corpuscular HGB CONC 31.9 g/dL (32.0-36.0); Mean Corpuscular Hemoglobin 28.7 pg (27.0-31.0); Mean Platelet Volume 8.7 fL (7.4-10.4); Platelet Count 148 thou/uL (130-400); RBC Distribution Width 15.5 % (11.5-14.5); Red Blood Cell (RBC) Count 3.46 mill/uL (4.20-5.40); White Blood Cell (WBC) Count 5.4 thou/uL (4.8-10.8)
[2017-10-10] MEDS: HYDROcodone/Acetaminophen 10/325 mg Tablet PO PRN ×3 (05:15→20:24)
[2017-10-10 05:36] LABS: ALT (SGPT) 8 U/L (8-55); AST (SGOT) 11 U/L (5-34); Albumin 3.3 g/dL (3.4-4.8); Alkaline Phosphatase 46 U/L (40-150); Anion Gap 15 mmol/L (10-20); BUN (Urea Nitrogen) 12 mg/dL (9.8-20.1); Bilirubin, Total 0.2 mg/dL (0.2-1.2); CRP (Inflammatory) 1.31 mg/dL (= or < 0.5); Calc. Creatinine Clearance 134 mL/min (70-130); Calcium 9.2 mg/dL (7.8-10.44); Carbon Dioxide 27 mmol/L (23-31); Chloride 102 mmol/L (98-107); Estimated GFR-MDRD Greater than 90; Globulin 2.7 g/dL (2.4-3.5); Glucose 111 mg/dL (83-110); Sodium 140 mmol/L (136-145)
[2017-10-10] MEDS: Saccharomyces boulardii 250 MG CAP PO SCH ×2 (08:41→20:21)
[2017-10-10] MEDS: Minoxidil 2.5 MG TAB PO SCH (08:43)
[2017-10-10] MEDS: metFORMIN XR 500 MG TAB PO SCH ×2 (08:43→16:34)
[2017-10-10] MEDS: hydrALAZINE 25 MG TAB PO SCH ×3 (08:43→20:21)
[2017-10-10] MEDS: Escitalopram Oxalate 10 mg Tablet PO SCH (08:44)
[2017-10-10] MEDS: Famotidine 20 MG TAB PO SCH ×2 (08:44→20:20)
[2017-10-10] MEDS: cloNIDine 0.2 MG TAB PO SCH ×2 (08:44→15:49)
[2017-10-10] MEDS: Gabapentin 300 MG CAP PO SCH ×4 (08:44→20:20)
[2017-10-10] MEDS: Aspirin 81 mg Enteric Coated Tablet PO SCH (08:44)
[2017-10-10] MEDS: Lisinopril 20 MG TAB PO SCH (08:44)
[2017-10-10] MEDS: Atenolol 25 MG TAB PO SCH (08:45)
[2017-10-10] MEDS: Levemir Flexpen 100 UNITS/ML PEN SC SCH ×2 (08:45→20:21)
[2017-10-10] MEDS: Rifampin 300 MG CAP PO SCH ×2 (10:59→20:24)
[2017-10-10] MEDS: Ondansetron ODT 4 MG TAB SL PRN ×2 (10:59→20:24)
[2017-10-10] MEDS: cefTRIAXone\\ROCEPHIN 2 GM in Sodium Chloride 0.9% 100 ML IVPB SCH (13:32)
--- NOTE | 2017-10-10 13:40 | PRG ---
DATE OF SERVICE: 10/10/2017 SUBJECTIVE: Ms. Hoyos is doing well. Denies any complaints, resting comfortably. Tolerating her th erapy. OBJECTIVE: VITAL SIGNS: She is afebrile, heart rate is 62, respirations 16, oxygen saturation 94%, blood pressu re 183/74. CARDIOVASCULAR: S1, S2 plus. RESPIRATORY: Normal vesicular breath sounds. ABDOMEN: Soft, nontender, obese. Bowel sounds heard in all quadrants. EXTREMITIES: Without cyanosis or clubbing. Improving edema in right lower extremity. No erythema. LABORATORY VALUES: Sed rate is up to 100. White count is 5.4, H&H is 10 and 31.2. Chemistry shows a sodium 140, potassium 4.0, BUN and creatinine is 12 and 0.62. Blood sugars are 101, 109, 110, and 103. CRP is 1.31 and it was 1.15 last 10 days ago. IMPRESSION: 1. Resolved right lower extremity cellulitis. 2. Possible recurrence of septic arthritis. 3. Diabetes mellitus type 2. 4. Hypertension, not well controlled. 5. Dyslipidemia. 6. Obstructive sleep apnea. PLAN: 1. Continue current medications. 2. Nutritional support. 3. Deep venous thrombosis and stress ulcer prophylaxis. 4. Decubitus precautions. 5. Order renal ultrasound with Doppler to rule out renal artery stenosis. 6. Continue IV Rocephin, p.o. rifampin and IV Flagyl. Discussed with patient and all questions answ ered.
[2017-10-10] MEDS: Atorvastatin Calcium 10 MG TAB PO SCH (20:19)
[2017-10-10] MEDS: cloNIDine 0.1 MG TAB PO SCH (20:19)
[2017-10-10] MEDS: Amlodipine 10 MG TAB PO SCH (20:19)
[2017-10-10] MEDS: Enoxaparin Sodium 40 MG/0.4 ML SYRINGE SC SCH (20:20)
[2017-10-11] MEDS: Levothyroxine Sodium 125 MCG TAB PO SCH (05:03)
[2017-10-11] MEDS: metroNIDAZOLE 500 MG in Premix Bag 1 BAG IVPB SCH ×3 (05:04→20:34)
[2017-10-11] MEDS: metFORMIN XR 500 MG TAB PO SCH ×2 (08:18→16:42)
[2017-10-11] MEDS: Atenolol 25 MG TAB PO SCH (08:19)
[2017-10-11] MEDS: Aspirin 81 mg Enteric Coated Tablet PO SCH (08:19)
[2017-10-11] MEDS: cloNIDine 0.1 MG TAB PO SCH ×3 (08:20→20:31)
[2017-10-11] MEDS: Gabapentin 300 MG CAP PO SCH ×4 (08:21→20:32)
[2017-10-11] MEDS: Escitalopram Oxalate 10 mg Tablet PO SCH (08:21)
[2017-10-11] MEDS: hydrALAZINE 25 MG TAB PO SCH ×3 (08:21→20:32)
[2017-10-11] MEDS: Famotidine 20 MG TAB PO SCH ×2 (08:21→20:32)
[2017-10-11] MEDS: Levemir Flexpen 100 UNITS/ML PEN SC SCH ×2 (08:22→20:33)
[2017-10-11] MEDS: Lisinopril 20 MG TAB PO SCH (08:22)
[2017-10-11] MEDS: Minoxidil 2.5 MG TAB PO SCH (08:23)
[2017-10-11] MEDS: Saccharomyces boulardii 250 MG CAP PO SCH ×2 (08:23→20:33)
[2017-10-11] MEDS: HYDROcodone/Acetaminophen 10/325 mg Tablet PO PRN ×3 (08:29→20:34)
[2017-10-11] MEDS: Rifampin 300 MG CAP PO SCH ×2 (11:09→20:34)
[2017-10-11] MEDS: Ondansetron ODT 4 MG TAB SL PRN ×2 (11:09→20:34)
[2017-10-11] MEDS: cefTRIAXone\\ROCEPHIN 2 GM in Sodium Chloride 0.9% 100 ML IVPB SCH (13:24)
--- NOTE | 2017-10-11 13:29 | PRG ---
DATE OF SERVICE: 10/11/2017 SUBJECTIVE: Ms. Hoyos is doing well. Denies any complaints, resting comfortably, tolerating her the rapy. OBJECTIVE: VITAL SIGNS: She is afebrile, heart rate is 72, respirations 18, blood pressure 194/81. CARDIOVASCULAR SYSTEM: S1, S2 plus. RESPIRATORY SYSTEM: Normal vesicular breath sounds. ABDOMEN: Soft, nontender, bowel sounds heard in all quadrants. EXTREMITIES: Without cyanosis or clubbing. Her sed rate is actually re-run and is down to 48. IMPRESSION: 1. Resolved right lower extremity cellulitis. 2. Improving right knee septic arthritis. 3. Hypertension, not well controlled. 4. Diabetes mellitus type 2. 5. Dyslipidemia. 6. Obstructive sleep apnea. PLAN: 1. Check renal ultrasound with Doppler. 2. Continue current medications. 3. Nutritional support. 4. Low sodium diet. 5. Switch Flagyl to p.o. 6. Continue Rocephin IV. 7. Six weeks of IV antibiotics. 8. Discussed with patient in detail and all questions answered.
[2017-10-11] MEDS ORDERED: cloNIDine 0.3mg/24 Hour PATCH TD SCH (14:00)
[2017-10-11] MEDS: Amlodipine 10 MG TAB PO SCH (20:30)
[2017-10-11] MEDS: Atorvastatin Calcium 10 MG TAB PO SCH (20:31)
[2017-10-11] MEDS: Enoxaparin Sodium 40 MG/0.4 ML SYRINGE SC SCH (20:32)
[2017-10-12] MEDS: Levothyroxine Sodium 125 MCG TAB PO SCH (05:12)
[2017-10-12] MEDS: metroNIDAZOLE 500 MG in Premix Bag 1 BAG IVPB SCH (05:12)
[2017-10-12] MEDS: metFORMIN XR 500 MG TAB PO SCH ×2 (08:29→16:47)
[2017-10-12] MEDS: Aspirin 81 mg Enteric Coated Tablet PO SCH (08:30)
[2017-10-12] MEDS: Atenolol 25 MG TAB PO SCH (08:30)
[2017-10-12] MEDS: Escitalopram Oxalate 10 mg Tablet PO SCH (08:31)
[2017-10-12] MEDS: cloNIDine 0.1 MG TAB PO SCH ×3 (08:32→20:52)
[2017-10-12] MEDS: Gabapentin 300 MG CAP PO SCH ×4 (08:32→20:54)
[2017-10-12] MEDS: Famotidine 20 MG TAB PO SCH ×2 (08:32→20:53)
[2017-10-12] MEDS: Lisinopril 20 MG TAB PO SCH (08:33)
[2017-10-12] MEDS: hydrALAZINE 25 MG TAB PO SCH ×3 (08:33→20:52)
[2017-10-12] MEDS: Levemir Flexpen 100 UNITS/ML PEN SC SCH ×2 (08:33→20:50)
[2017-10-12] MEDS: Minoxidil 2.5 MG TAB PO SCH (08:34)
[2017-10-12] MEDS: Saccharomyces boulardii 250 MG CAP PO SCH ×2 (08:34→20:53)
[2017-10-12] MEDS: HYDROcodone/Acetaminophen 10/325 mg Tablet PO PRN ×3 (08:41→20:53)
[2017-10-12] MEDS: Ondansetron ODT 4 MG TAB SL PRN ×2 (11:06→22:25)
[2017-10-12] MEDS: Rifampin 300 MG CAP PO SCH ×2 (11:06→22:25)
[2017-10-12] MEDS: cefTRIAXone\\ROCEPHIN 2 GM in Sodium Chloride 0.9% 100 ML IVPB SCH (13:10)
--- NOTE | 2017-10-12 13:30 | PRG ---
DATE OF SERVICE: 10/12/2017 SUBJECTIVE: Ms. Hoyos is doing well. Denies any complaints, resting comfortably, tolerating her the rapy. Reviewed her prior investigations and she had an aortic runoff done before her right fem-pop b ypass and it shows significant bilateral renal artery stenosis. I advised her that most likely is th e reason why she is having persistent hypertension. The clonidine does seem to be helping. OBJECTIVE: VITAL SIGNS: She is afebrile, heart rate 71, respiration is 18, oxygen saturation 94%, blood pressur e early this morning was 189/81, but then apparently it was down in the 150s, it is not documented. CARDIOVASCULAR: S1, S2 plus. RESPIRATORY: Normal vesicular breath sounds. ABDOMEN: Soft, obese, nontender, bowel sounds heard in all quadrants. EXTREMITIES: Without cyanosis or clubbing. Improving right lower extremity edema. Resolved right l ower extremity cellulitis. IMPRESSION: 1. Possible recurrent right knee septic arthritis, improving. The plan is to switch her to oral Fla gyl and see if she would qualify for home infusion of her IV Rocephin. 2. Continue Accu-Cheks and sliding scale coverage. 3. Nocturnal CPAP. 4. Continue current blood pressure medications. 5. Outpatient follow up with Cardiology for possibly intervention for her renal artery stenosis. 6. Physical therapy. 7. I discussed with the patient in detail and all questions answered.
[2017-10-12] MEDS: metroNIDAZOLE 500 MG TAB PO SCH ×2 (15:03→20:53)
[2017-10-12] MEDS: Enoxaparin Sodium 40 MG/0.4 ML SYRINGE SC SCH (20:51)
[2017-10-12] MEDS: Atorvastatin Calcium 10 MG TAB PO SCH (20:52)
[2017-10-12] MEDS: Amlodipine 10 MG TAB PO SCH (20:53)
[2017-10-13] MEDS: Levothyroxine Sodium 125 MCG TAB PO SCH (05:56)
[2017-10-13] MEDS: HYDROcodone/Acetaminophen 10/325 mg Tablet PO PRN ×2 (07:31→21:17)
[2017-10-13] MEDS: metFORMIN XR 500 MG TAB PO SCH ×2 (07:33→17:07)
[2017-10-13] MEDS: hydrALAZINE 25 MG TAB PO SCH ×3 (07:34→21:16)
[2017-10-13] MEDS: Aspirin 81 mg Enteric Coated Tablet PO SCH (07:35)
[2017-10-13] MEDS: cloNIDine 0.1 MG TAB PO SCH ×3 (07:35→21:17)
[2017-10-13] MEDS: Lisinopril 20 MG TAB PO SCH (07:35)
[2017-10-13] MEDS: Atenolol 25 MG TAB PO SCH (07:36)
[2017-10-13] MEDS: metroNIDAZOLE 500 MG TAB PO SCH ×3 (07:36→21:16)
[2017-10-13] MEDS: Escitalopram Oxalate 10 mg Tablet PO SCH (07:36)
--- NOTE | 2017-10-13 09:35 | PRG ---
DATE OF SERVICE: 10/13/2017 SUBJECTIVE: Ms. Hoyos is doing well. Denies any complaints, resting comfortably. She has been swit ched over to oral antibiotics on rifampin and Flagyl and she is just going to be on IV Rocephin until the . Arrangements are being made to see if home health can do it for her at home. She is doin g well otherwise and is medically stable to be discharged home. She does have significant bilateral renal artery stenosis and I explained to her that this most likely the reason why her blood pressure is not under control and she needs to follow up with her orange grower, Dr. Pearce, on an outpatien t basis and see if she is a candidate for any angioplasty and stent placement. No other concerns or questions. She is also to have outpatient followup with Dr. Heaton who will be managing her antibioti cs once she is discharged home. After she finishes her Rocephin IV on the , then she is supposed to be on Keflex and rifampin for at least another 3 months orally. PHYSICAL EXAMINATION: VITAL SIGNS: Heart rate 71, respirations 18, oxygen saturation 95%, blood pressure 166/70. CARDIOVASCULAR: S1, S2 plus. RESPIRATORY: Normal vesicular breath sounds. ABDOMEN: Soft, obese, nontender, bowel sounds heard in all quadrants. EXTREMITIES: Without cyanosis or clubbing. Right leg without any erythema and much improved edema. IMPRESSION: 1. Right knee septic arthritis. 2. Resolved right lower extremity cellulitis. 3. Right heel stage IV decubitus. 4. Peripheral vascular disease, status post right femoral-popliteal bypass. 5. Severe bilateral renal artery stenosis and severe peripheral vascular disease. 6. Diabetes mellitus type 2. 7. Hypertension. 8. Dyslipidemia. 9. Obstructive sleep apnea. PLAN: 1. Continue current medications. 2. Await arrangements for home health to do antibiotics and anticipate discharging her on Monday. I do not want there to be any confusion over the weekend. 3. Continue physical therapy and wound care. 4. Accu-Cheks with sliding scale coverage. 5. Nocturnal continuous positive airway pressure. 6. Dr. Maxine Castillo applications intern this weekend. 7. I discussed with the patient in detail and all questions answered.
[2017-10-13] MEDS: Famotidine 20 MG TAB PO SCH ×3 (09:50→21:16)
[2017-10-13] MEDS: Saccharomyces boulardii 250 MG CAP PO SCH ×2 (09:50→21:15)
[2017-10-13] MEDS: Gabapentin 300 MG CAP PO SCH ×5 (09:50→21:16)
[2017-10-13] MEDS: Minoxidil 2.5 MG TAB PO SCH ×2 (09:50→11:23)
[2017-10-13] MEDS: Levemir Flexpen 100 UNITS/ML PEN SC SCH ×2 (09:50→21:12)
[2017-10-13] MEDS: Rifampin 300 MG CAP PO SCH ×3 (10:26→22:25)
[2017-10-13] MEDS: Ondansetron ODT 4 MG TAB SL PRN ×2 (11:22→22:25)
[2017-10-13] MEDS: cefTRIAXone\\ROCEPHIN 2 GM in Sodium Chloride 0.9% 100 ML IVPB SCH (13:24)
[2017-10-13] MEDS: Enoxaparin Sodium 40 MG/0.4 ML SYRINGE SC SCH (21:13)
[2017-10-13] MEDS: Atorvastatin Calcium 10 MG TAB PO SCH (21:16)
[2017-10-13] MEDS: Amlodipine 10 MG TAB PO SCH (21:17)
[2017-10-14] MEDS: Levothyroxine Sodium 125 MCG TAB PO SCH (05:17)
[2017-10-14] MEDS: Levemir Flexpen 100 UNITS/ML PEN SC SCH ×2 (08:43→21:01)
[2017-10-14] MEDS: Famotidine 20 MG TAB PO SCH ×2 (08:44→21:07)
[2017-10-14] MEDS: Lisinopril 20 MG TAB PO SCH (08:44)
[2017-10-14] MEDS: Gabapentin 300 MG CAP PO SCH ×4 (08:44→21:07)
[2017-10-14] MEDS: hydrALAZINE 25 MG TAB PO SCH ×3 (08:44→21:06)
[2017-10-14] MEDS: Saccharomyces boulardii 250 MG CAP PO SCH ×2 (08:44→21:08)
[2017-10-14] MEDS: metroNIDAZOLE 500 MG TAB PO SCH ×3 (08:44→21:07)
[2017-10-14] MEDS: Minoxidil 2.5 MG TAB PO SCH (08:45)
[2017-10-14] MEDS: Escitalopram Oxalate 10 mg Tablet PO SCH (08:45)
[2017-10-14] MEDS: cloNIDine 0.1 MG TAB PO SCH ×2 (08:46→16:29)
[2017-10-14] MEDS: Atenolol 25 MG TAB PO SCH (08:46)
[2017-10-14] MEDS: Aspirin 81 mg Enteric Coated Tablet PO SCH (08:46)
[2017-10-14] MEDS: metFORMIN XR 500 MG TAB PO SCH ×2 (08:47→16:27)
[2017-10-14] MEDS: HYDROcodone/Acetaminophen 10/325 mg Tablet PO PRN ×2 (08:48→21:03)
--- NOTE | 2017-10-14 09:44 | PRG ---
DATE OF SERVICE: 10/14/2017 DATE OF ADMISSION: 10/08/2017 HISTORY OF PRESENT ILLNESS: Ms. 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 She was placed on IV antibiotics for 6 weeks. She also had a right heel decubitus. She eventually was admitted to the hospital for continued IV an tibiotics, physical therapy and occupational therapy. She also had a renal stone which required lith otripsy and stent placement. She also had a wound VAC on her right fem-pop bypass. She has actually had been doing very well and her insurance runs out on Monday. She has been told that she has to le ave the hospital on Monday and to go back home. SUBJECTIVE: The patient states she has no complaints. She is actually doing much better. She is mu ch better than she was when this all started. She states she has been in the hospital for the last 4 -1/2 months and has only been at home one day and the day she went home she fell multiple times and h ad to go back to the hospital. Patient saw wound care doctor, Dr. Lilly for exposed tendon in her heel. He states she is doing we ll and changed couple of things and wants to see her again in a week. PHYSICAL EXAMINATION: VITAL SIGNS: Reveal blood pressure 158/67, pulse 65-69, respirations 18-20, O2 sat 96%-98%, T-max 98 . GENERAL: This is a well-developed, well-nourished, slightly obese white female in no apparent distre ss at this time. HEENT: Reveals normocephalic, nontraumatic cranium. Pupils are equally round and reactive. Extraoc ular movements are intact. Nose and throat are dry, but clear. NECK: Supple, without mass, nodes or bruits. CHEST: Clear to auscultation. No rales, no rhonchi, no wheezes. No cough is heard. HEART: Reveals a regular rate and rhythm without murmurs, gallops or rubs. ABDOMEN: Obese. It is soft and nontender without organomegaly. Normal bowel sounds are noted in al l 4 quadrants. No rebound or guarding is noted. GENITOURINARY: Deferred. EXTREMITIES: Reveal no clubbing, cyanosis. Right leg seems to be doing better, it seems still with some permanent edema. LABORATORY DATA: Sugars reveal this morning blood sugar fasting was 99. Yesterday morning, her blood sugar with fasting was 118, before lunch 96, before supper 105, before b edtime 116. ASSESSMENT: 1. Septic right knee. 2. Hardware removed from that knee with disk, antibiotics just placed. 3. Right lower extremity cellulitis, much improved. 4. Right heel stage IV decubitus. 5. Peripheral vascular disease, status post right femoral popliteal bypass. 6. Bilateral renal artery stenosis. 7. Severe peripheral vascular disease. 8. Diabetes type 2, well controlled. 9. Hypertension, stable. 10. Hyperlipidemia. 11. Obstructive sleep apnea. 12. Generalized weakness. PLAN: 1. Arrangements for discharge on Monday. 2. Continue Accu-Cheks a.c. and at bedtime. 3. Continue present medications. 4. Continue CPAP. 5. Continue antibiotics at home. 6. Discharge planning for discharge on Monday.
[2017-10-14] MEDS: Ondansetron ODT 4 MG TAB SL PRN ×2 (11:50→21:57)
[2017-10-14] MEDS: Rifampin 300 MG CAP PO SCH ×2 (11:50→21:59)
[2017-10-14] MEDS: cefTRIAXone\\ROCEPHIN 2 GM in Sodium Chloride 0.9% 100 ML IVPB SCH (13:08)
[2017-10-14] MEDS: Enoxaparin Sodium 40 MG/0.4 ML SYRINGE SC SCH (21:02)
[2017-10-14] MEDS: cloNIDine 0.2 MG TAB PO SCH (21:04)
[2017-10-14] MEDS: Atorvastatin Calcium 10 MG TAB PO SCH (21:07)
[2017-10-14] MEDS: Amlodipine 10 MG TAB PO SCH (21:08)
[2017-10-15 05:16] VITALS: BMI 42.5
[2017-10-15] MEDS: Levothyroxine Sodium 125 MCG TAB PO SCH (06:20)
--- NOTE | 2017-10-15 07:40 | PRG ---
DATE OF SERVICE: 10/15/2017 DATE OF ADMISSION: 09/07/2017 HISTORY OF PRESENT ILLNESS: Ms. Hoyos is a very pleasant 72-year-old white female that unfortunately had an infection in her prosthetic right knee. She was placed on IV antibiotics for a total of six weeks. She also had a right heel decubitus which is slowly healing. She did see Dr. Lilly who is a air defense specialist with Dr. Powell. The patient is doing well and he will also continue to haylie luate her next week. PHYSICAL EXAMINATION: VITAL SIGNS: Reveal blood pressure 164/65, pulse 60-61, respirations 18, O2 sat 94%-95%, T-max is 98 .2. GENERAL: This is a well-developed, well-nourished, slightly obese white female in no apparent distre ss at this time. HEENT: Reveals normocephalic and nontraumatic cranium. Pupils are round and reactive. Extraocular movements intact. Nose and throat are clear and dry. NECK: Supple, without masses, nodes or bruits. CHEST: Clear to auscultation. No rales, rhonchi, wheezes or cough is heard. HEART: Reveals a regular rate and rhythm without murmurs, gallops or rubs. ABDOMEN: Slightly obese. Soft and nontender without organomegaly. Normal bowel sounds are noted. No rebound or guarding is noted. GENITOURINARY: Deferred. EXTREMITIES: Reveal no clubbing, cyanosis or edema. The right leg continues to do well. The patien t does have some continued edema there. LABORATORY DATA: Fasting sugar this morning is 95. ASSESSMENT: 1. Septic right knee. 2. Hardware removed from right knee with antibiotic disk placed. 3. Right lower extremity cellulitis, improved. 4. Right heel decubitus stage IV. 5. Peripheral vascular disease, status post femoropopliteal bypass. 6. Bilateral renal artery stenosis. 7. Severe peripheral vascular disease. 8. Hypertension, which is stable. 9. Diabetes, which is well controlled. 10. Hyperlipidemia. 11. Obstructive sleep apnea. 12. Generalized weakness. PLAN: 1. Probable discharge tomorrow. 2. Continue to follow Accu-Cheks a.c. and at bedtime. 3. Continue stress ulcer prophylaxis. 4. Continue decubitus precautions. 5. DVT prophylaxis. 6. Continue CPAP. 7. Continue present meds. 8. Continue IV antibiotics at home. 9. Continue discharge planning for tomorrow.
[2017-10-15] MEDS: Gabapentin 300 MG CAP PO SCH ×4 (08:02→21:58)
[2017-10-15] MEDS: Minoxidil 2.5 MG TAB PO SCH (08:02)
[2017-10-15] MEDS: Lisinopril 20 MG TAB PO SCH (08:03)
[2017-10-15] MEDS: metFORMIN XR 500 MG TAB PO SCH ×2 (08:03→16:57)
[2017-10-15] MEDS: Escitalopram Oxalate 10 mg Tablet PO SCH (08:04)
[2017-10-15] MEDS: metroNIDAZOLE 500 MG TAB PO SCH ×3 (08:05→21:58)
[2017-10-15] MEDS: hydrALAZINE 25 MG TAB PO SCH ×2 (08:06→16:58)
[2017-10-15] MEDS: Atenolol 25 MG TAB PO SCH (08:06)
[2017-10-15] MEDS: Famotidine 20 MG TAB PO SCH ×2 (08:06→21:58)
[2017-10-15] MEDS: Saccharomyces boulardii 250 MG CAP PO SCH ×2 (08:06→21:58)
[2017-10-15] MEDS: cloNIDine 0.2 MG TAB PO SCH ×3 (08:07→21:58)
[2017-10-15] MEDS: HYDROcodone/Acetaminophen 10/325 mg Tablet PO PRN ×2 (08:07→22:01)
[2017-10-15] MEDS: Aspirin 81 mg Enteric Coated Tablet PO SCH (08:07)
[2017-10-15] MEDS: Levemir Flexpen 100 UNITS/ML PEN SC SCH ×2 (08:09→21:57)
[2017-10-15] MEDS: Ondansetron ODT 4 MG TAB SL PRN ×2 (11:17→22:44)
[2017-10-15] MEDS: Rifampin 300 MG CAP PO SCH ×2 (11:17→22:44)
[2017-10-15] MEDS: cefTRIAXone\\ROCEPHIN 2 GM in Sodium Chloride 0.9% 100 ML IVPB SCH (13:22)
[2017-10-15] MEDS ORDERED: hydrALAZINE 10 MG TAB PO SCH (21:15)
[2017-10-15] MEDS: Atorvastatin Calcium 10 MG TAB PO SCH (21:58)
[2017-10-15] MEDS: Amlodipine 10 MG TAB PO SCH (21:59)
[2017-10-15] MEDS: Enoxaparin Sodium 40 MG/0.4 ML SYRINGE SC SCH (22:00)
[2017-10-16] MEDS: Levothyroxine Sodium 125 MCG TAB PO SCH (05:16)
[2017-10-16] MEDS: HYDROcodone/Acetaminophen 10/325 mg Tablet PO PRN ×3 (06:50→22:38)
[2017-10-16] MEDS: Aspirin 81 mg Enteric Coated Tablet PO SCH (08:38)
[2017-10-16] MEDS: Atenolol 25 MG TAB PO SCH (08:38)
[2017-10-16] MEDS: cloNIDine 0.2 MG TAB PO SCH ×3 (08:39→21:00)
[2017-10-16] MEDS: metFORMIN XR 500 MG TAB PO SCH ×2 (08:39→16:51)
[2017-10-16] MEDS: Escitalopram Oxalate 10 mg Tablet PO SCH (08:41)
[2017-10-16] MEDS: Gabapentin 300 MG CAP PO SCH ×4 (08:42→20:59)
[2017-10-16] MEDS: Famotidine 20 MG TAB PO SCH ×2 (08:42→21:02)
[2017-10-16] MEDS: hydrALAZINE 25 MG TAB PO SCH ×3 (08:43→21:02)
[2017-10-16] MEDS: Levemir Flexpen 100 UNITS/ML PEN SC SCH ×2 (08:43→21:03)
[2017-10-16] MEDS: metroNIDAZOLE 500 MG TAB PO SCH ×3 (08:43→21:02)
[2017-10-16] MEDS: Lisinopril 20 MG TAB PO SCH (08:43)
[2017-10-16] MEDS: Saccharomyces boulardii 250 MG CAP PO SCH ×2 (08:44→20:59)
[2017-10-16] MEDS: Minoxidil 2.5 MG TAB PO SCH (08:44)
[2017-10-16] MEDS: Rifampin 300 MG CAP PO SCH ×2 (11:27→22:38)
[2017-10-16] MEDS: Ondansetron ODT 4 MG TAB SL PRN (11:28)
[2017-10-16] MEDS: cefTRIAXone\\ROCEPHIN 2 GM in Sodium Chloride 0.9% 100 ML IVPB SCH (11:56)
--- NOTE | 2017-10-16 14:18 | DIS ---
DATE OF ADMISSION: 09/07/2017 DATE OF DISCHARGE: 10/16/2017 PRINCIPAL DIAGNOSIS: Recurrence of right knee septic arthritis. SECONDARY DIAGNOSES: 1. Resolved right lower extremity cellulitis. 2. Stage IV decubitus right heel. 3. Obstructive sleep apnea. 4. Diabetes mellitus type 2. 5. Hypertension not controlled, likely due to bilateral severe renal artery stenosis. 6. Peripheral vascular disease, status post right femoral-popliteal bypass. 7. Dyslipidemia. 8. Morbid obesity. 9. Coronary artery disease. 10. Degenerative joint disease. COMPLICATIONS: None. ADVERSE REACTIONS: None. PROCEDURES: Wound care. CONSULTATIONS: None. HOSPITAL COURSE: The patient was admitted as a transfer from [facility] for deconditionin g and wound care for her right heel decubitus. While she was here, she developed recurrence of right lower extremity cellulitis and it also seemed like there was a flare up of her right knee septic art hritis. She was started back on IV vancomycin and Rocephin. I discussed with Dr. Heaton and he recom mended Flagyl as well and then as she was doing better, changed the IV vancomycin to oral rifampin. She had outpatient followup with Dr. Bryant and Dr. Schwab and they did not recommend any change in he r treatment. She has been continued on the IV Rocephin, IV Flagyl and p.o. rifampin. Her sed rate a nd CRP continued to come down and then she was switched to p.o. Flagyl as well. Since she is just on one IV antibiotic, arrangements are being made for her to get this at home, she needs another 2 week s. She has been doing well with therapy. She has been getting around with her wheelchair and in and out of her car. She did even go out on pass for [employer]. Therapy has deemed her stable for [facility]. She will have outpatient follow up with Dr. Cooper who is her primary care physicia n, Dr. Heaton her Infectious Disease specialist, Dr. Schwab her orthopedic surgeon and Dr. Bryant who r ecently did her right fem-pop bypass. I also advised her to follow with Dr. Pearce who was her ca rdiologist and see if she may be a candidate for renal artery stent placement. Her blood sugars have been stable. [facility] has been arranged to do home Rocephin. They have been informed to yvan chairez sure they contacted her primary care physician and Dr. Heaton for further management as she is not my regular patient. She is to get CBC, CMP, CRP and sed rate in 5 days' time, so that when she follo ws with Dr. Heaton in 7 days, she will have the results. I also advised her that after she finishes I V antibiotic and IV Rocephin on 10/26/2017 or 10/27/2017, then she will need to be started on Keflex plus rifampin per Dr. Heaton and he should be able to take care of it when she follows up with him in a week's time. PHYSICAL EXAMINATION: VITAL SIGNS: On the day of discharge, she is afebrile, heart rate is 74, respirations are 20, oxygen saturation is 96%, and blood pressure is 168/72. CARDIOVASCULAR SYSTEM: S1, S2 plus. RESPIRATORY SYSTEM: Normal vesicular breath sounds. ABDOMEN: Soft, obese, nontender, bowel sounds heard in all quadrants. EXTREMITIES: Without cyanosis or clubbing. Trace edema. Right leg, no erythema. LABORATORY DATA: Blood sugars are 102, 96, 150, 126, and 110. DISCHARGE MEDICATIONS: 1. Amlodipine 10 mg p.o. daily. 2. Aspirin 81 mg daily. 3. Atenolol 100 mg daily. 4. Vitamin D 1000 international units daily. 5. Clonidine 0.3 mg p.o. t.i.d. 6. Lexapro 10 mg daily. 7. Famotidine 20 mg daily. 8. Gabapentin 600 mg q.i.d. 9. Hydralazine 100 mg t.i.d. 10. Hydrocodone 10/325 q.4 p.r.n. 11. Levemir 35 units subcutaneous in the morning and 60 units subcutaneous in the evening. 12. Levoxyl 125 mcg daily. 13. Lisinopril 40 mg daily. 14. Metformin 1000 mg b.i.d. 15. Flagyl 500 mg t.i.d. for 2 more weeks till 10/27/2017. 16. Minoxidil 2.5 mg daily. 17. Myrbetriq 50 mg daily. 18. Rifampin 300 mg b.i.d. She is supposed to be on this for [address] Heaton is going to give her a prescription for 3 months, I am not sure if he is going to keep her on the same dose or he is going to change it. Nishant rastor 250 mg b.i.d. while she is on antibiotics. Discontinue simvastatin as she is on amlodipine no w and start atorvastatin 20 mg daily. Rocephin will be 2 grams IV q.24 till 10/27/2017. She is to c all us with any questions or concerns, 1800 calorie heart healthy ADA diet. Activity as tolerated. Wound care instructions have also been given to [facility]. Outpatient followup with Dr. Waqas hsu for wound care. Total time spent on this discharge 40 minutes. Her prescriptions have been sent to [facility] in [facility].
[2017-10-16] MEDS: Atorvastatin Calcium 10 MG TAB PO SCH (21:01)
[2017-10-16] MEDS: Amlodipine 10 MG TAB PO SCH (21:01)
[2017-10-16] MEDS: Enoxaparin Sodium 40 MG/0.4 ML SYRINGE SC SCH (21:02)
[2017-10-17] MEDS: Levothyroxine Sodium 125 MCG TAB PO SCH (06:06)
[2017-10-17] MEDS: Aspirin 81 mg Enteric Coated Tablet PO SCH (08:22)
[2017-10-17] MEDS: metFORMIN XR 500 MG TAB PO SCH (08:22)
[2017-10-17] MEDS: Atenolol 25 MG TAB PO SCH (08:23)
[2017-10-17] MEDS: cloNIDine 0.2 MG TAB PO SCH (08:24)
[2017-10-17] MEDS: Gabapentin 300 MG CAP PO SCH (08:26)
[2017-10-17] MEDS: Famotidine 20 MG TAB PO SCH (08:26)
[2017-10-17] MEDS: Escitalopram Oxalate 10 mg Tablet PO SCH (08:26)
[2017-10-17] MEDS: hydrALAZINE 25 MG TAB PO SCH (08:26)
[2017-10-17] MEDS: Lisinopril 20 MG TAB PO SCH (08:27)
[2017-10-17] MEDS: Levemir Flexpen 100 UNITS/ML PEN SC SCH (08:27)
[2017-10-17] MEDS: Minoxidil 2.5 MG TAB PO SCH (08:28)
[2017-10-17] MEDS: metroNIDAZOLE 500 MG TAB PO SCH (08:28)
[2017-10-17] MEDS: Saccharomyces boulardii 250 MG CAP PO SCH (08:28)
[2017-10-17] MEDS: HYDROcodone/Acetaminophen 10/325 mg Tablet PO PRN ×2 (08:29→12:16)
[2017-10-17 08:40] VITALS: BP 199/84
[2017-10-17 11:20] VITALS: TEMP 97.3
[2017-10-17] MEDS: cefTRIAXone\\ROCEPHIN 2 GM in Sodium Chloride 0.9% 100 ML IVPB SCH (11:26)
[2017-10-17] MEDS: Ondansetron ODT 4 MG TAB SL PRN (11:26)
[2017-10-17] MEDS: Rifampin 300 MG CAP PO SCH (11:26)
--- NOTE | 2017-10-17 16:49 | ADD-DIS ---
ADDENDUM To the discharge summary I dictated yesterday. Ms. Hoyos was supposed to be discharged yesterday, but apparently in the last minute, [facility] backed out. They said they would not be able to do her IV antibiotics. Nursing made arrangements with and [facility] and everything is in place, so she had to stay overnight until this was [facility] and she is going home today. [email or web address]. I tri ed to call her physician, Dr. Elissa Gomez up at [facility]. Unfortunately, sh santos just went to a voicemail. I advised the patient to have Dr. Gomez call me, so that I can give her an update. Home health orders are supposed to go to Dr. Gomez and patient is also supposed to foll ow with Dr. Heaton regarding the long-term antibiotics.
== END 2017-10-17 12:45 | disposition home health service (06) | DRG 947 ==
LOC: NAV ACUTE 12:22
PROVIDERS: ADMIT Internal Medicine; ATTEND Internal Medicine
DX: R53.1 Weakness (principal); L89.614 Pressure ulcer of right heel, stage 4; E11.51 Type 2 diabetes mellitus with diabetic peripheral angiopathy without gangrene; E11.42 Type 2 diabetes mellitus with diabetic polyneuropathy; L03.115 Cellulitis of right lower limb; M00.861 Arthritis due to other bacteria, right knee; E11.649 Type 2 diabetes mellitus with hypoglycemia without coma; Z68.41 Body mass index [BMI] 40.0-44.9, adult; B37.49 Other urogenital candidiasis; E66.01 Morbid (severe) obesity due to excess calories; D64.9 Anemia, unspecified; I70.1 Atherosclerosis of renal artery; I10 Essential (primary) hypertension; Z95.1 Presence of aortocoronary bypass graft; Z95.0 Presence of cardiac pacemaker; E78.5 Hyperlipidemia, unspecified; E03.9 Hypothyroidism, unspecified; I25.10 Atherosclerotic heart disease of native coronary artery without angina pectoris; G47.33 Obstructive sleep apnea (adult) (pediatric); T84.53XD Infection and inflammatory reaction due to internal right knee prosthesis, subsequent encounter; Y83.8 Other surgical procedures as the cause of abnormal reaction of the patient, or of later complication, without mention of misadventure at the time of the procedure; E87.6 Hypokalemia; R11.2 Nausea with vomiting, unspecified; N20.0 Calculus of kidney; F32.9 Major depressive disorder, single episode, unspecified; M19.90 Unspecified osteoarthritis, unspecified site
CPT/HCPCS: 36415; 36416; 74176; 80048; 80053; 80202; 85025; 85652; 86140; 87040; 87070; 87077; 87186; 87205; 97602; A4216; C1751; J0696; J1650; J1815; J3370; J7050; Q0162